=== PATIENT | male | born 1930 | race Caucasian/White ===

== ENCOUNTER 2017-02-20 15:11 | Inpatient (IN) | payer MEDICARE, BC ==
[~2017-02-20] VITALS: Ht 170.2 cm; Wt 68.0 kg
[2017-02-20 15:16] VITALS: BP 89/40
--- NOTE | 2017-02-20 15:26 | Emergency Room Report ---
History of Present Illness General Chief Complaint: Generalized Weakness Source: Patient, Family Member, EMS Present Illness HPI 86-year-old male, history of pacemaker for bradycardia, hypertension, multiple bouts of pneumonia in the last 2 years, presenting with 5 days of fever chills, nonproductive cough, myalgias. Patient is coming from home, currently denying any chest pain abdominal pain nausea vomiting or diarrhea. Last hospital was several months ago. EMS stated that he was hypoxic on room air, 86, 100% with nonrebreather, and borderline hypotensive Allergies: Coded Allergies: No Known Allergies (Unverified , 02/20/17) Patient History Past Medical History: see triage record Past Surgical History: none Pertinent Family History: none Reviewed Nursing Documentation: PMH: Agreed, PSxH: Agreed Nursing Documentation-PMH Past Medical History: No History, Except For Hx Hypertension: Yes Hx COPD: Yes Review of Systems All Other Systems: negative except mentioned in HPI Physical Exam Vital Signs Date Time Temp Pulse Resp B/P (MAP) Pulse Ox O2 Delivery O2 Flow Rate FiO2 02/20/17 15:06 98.4 96 18 100/62 97 Non-Rebreather 10.0 Sp02 EP Interpretation: reviewed, normal General Appearance: alert, GCS 15, non-toxic, mild distress Head: normocephalic, atraumatic Eyes: bilateral eye normal inspection, bilateral eye PERRL, bilateral eye EOMI ENT: normal ENT inspection, normal pharynx, normal voice, moist mucus membranes Neck: normal inspection, full range of motion, supple Respiratory: respiratory distress, speaking full sentences, other - rhonchi b/l Cardiovascular #1: normal inspection, regular rate, rhythm, normal capillary refill Cardiovascular #2: 2+ radial (R), 2+ radial (L) Gastrointestinal: normal inspection, non tender, soft, non-distended, no guarding Musculoskeletal: normal inspection, back normal, normal range of motion, non- tender Neurologic: normal inspection, alert, oriented x3, responsive, motor strength/ tone normal, sensory intact, speech normal Psychiatric: normal inspection, judgement/insight normal, memory normal Skin: normal inspection, normal color, no rash, warm/dry, well hydrated, normal turgor Procedures Critical Care Time Critical Care Time 40 minutes of CC time 86-year-old male, shortness of breath, left-sided pneumonia VS: Tachycardic, hypotensive, tachypnea, hypoxic PLAN: IV access, labs, lactate, troponin, Blood/Urine Cx, Abx, IVF Anticipate admission to Tele vs. BEATRIZ CC time also includes review of labs, review of EMR, discussion with family and paperwork from SNF, d/w hospitalist CC could include dosing of pressors, additional Abx CC time does not include procedures Medical Decision Making Diagnostic Impression: Primary Impression: Pneumonia Additional Impressions: Respiratory distress Hypoxia Severe sepsis ER Course 86-year-old male, fever chills and cough for 5 days DDX: Viral URI vs. pneumonia Plan: Labs, CXR, antibiotics ER course: Continues to be in mild/moderate respiratory distress. IV fluids given to patient, antibiotics administered, L sided pneumonia I spoke to the patient's primary care doctor, , he is aware that patient will be admitted to [facility]. Is requesting to be admitted to Dr. Hazel. Also stated that patient has a history of atrial fibrillation, however is not on anticoagulation due to having a Watchman device Patient with low BP - responded well to fluids now with MAP > 60 Sepsis Re-examination Time: 6:30 PM VS: Temp 98 HR 72 BP 100/65 RR 18 CVS: RRR Respiratory: L lung crackles Peripheral pulses: 2+ radial Capillary refill: <2 seconds Skin exam: warm, dry, no rash, not mottled Disposition: Patient is to be admitted to telemetry D/w hospitalist Dr Hazel EKG Diagnostic Results EP Interpretation: Yes Rate: normal Rhythm: atrial fib ST Segments: RBBB, TWI V3 ASA given to patient: No Rhythm Strip EP Interpretation: Yes Rate: 110 Rhythm: NSR, no PVCs, no ectopy Chest X-ray CXR: Ordered: Yes 1 view Indication: SOB EP interpretation: Yes Interpretation: +L Infiltrate Impression: L sided pneumonia Electronically signed by Graciela Rosales MD Laboratory Tests Test 02/20/17 15:15 02/20/17 16:25 White Blood Count 11.6 K/UL (4.8-10.8) H Red Blood Count 3.95 M/UL (4.70-6.10) L Hemoglobin 12.7 G/DL (14.2-18.0) L Hematocrit 39.1 % (42.0-52.0) L Mean Corpuscular Volume 99 FL (80-99) Mean Corpuscular Hemoglobin 32.1 PG (27.0-31.0) H Mean Corpuscular Hemoglobin Concent 32.4 G/DL (32.0-36.0) Red Cell Distribution Width 11.5 % (11.6-14.8) L Platelet Count 185 K/UL (150-450) Mean Platelet Volume 7.6 FL (6.5-10.1) Neutrophils (%) (Auto) 93.7 % (45.0-75.0) H Lymphocytes (%) (Auto) 2.6 % (20.0-45.0) L Monocytes (%) (Auto) 3.4 % (1.0-10.0) Eosinophils (%) (Auto) 0.0 % (0.0-3.0) Basophils (%) (Auto) 0.3 % (0.0-2.0) Sodium Level 131 MMOL/L (136-145) L Potassium Level 4.0 MMOL/L (3.5-5.1) Chloride Level 98 MMOL/L (98-107) Carbon Dioxide Level 23 MMOL/L (21-32) Anion Gap 10 mmol/L (5-15) Blood Urea Nitrogen 66 mg/dL (7-18) H Creatinine 2.5 MG/DL (0.55-1.30) H Estimate Glomerular Filtration Rate mL/min (>60) Glucose Level 93 MG/DL (74-106) Lactic Acid Level 2.70 mmol/L (0.66-2.22) H Calcium Level 7.8 MG/DL (8.5-10.1) L Total Bilirubin 0.6 MG/DL (0.2-1.0) Aspartate Amino Transferase (AST) 14 U/L (15-37) L Alanine Aminotransferase (ALT) 7 U/L (12-78) L Alkaline Phosphatase 66 U/L (46-116) Total Creatine Kinase 36 U/L (26-308) Troponin I 0.000 ng/mL (0.000-0.056) Pro-B-Type Natriuretic Peptide 1546 pg/mL (0-125) H Total Protein 7.3 G/DL (6.4-8.2) Albumin 2.0 G/DL (3.4-5.0) L Globulin 5.3 g/dL Albumin/Globulin Ratio 0.4 (1.0-2.7) L Urine Color Pale yellow Urine Appearance Slightly cloudy Urine pH 5 (4.5-8.0) Urine Specific Bryant 1.015 (1.005-1.035) Urine Protein 2+ (NEGATIVE) H Urine Glucose (UA) Negative (NEGATIVE) Urine Ketones Negative (NEGATIVE) Urine Occult Blood 2+ (NEGATIVE) H Urine Nitrite Negative (NEGATIVE) Urine Bilirubin Negative (NEGATIVE) Urine Urobilinogen Normal MG/DL (0.0-1.0) Urine Leukocyte Esterase Negative (NEGATIVE) Urine RBC 0-2 /HPF (0 - 0) H Urine WBC 0-2 /HPF (0 - 0) Urine Squamous Epithelial Cells Occasional /LPF Urine Amorphous Sediment Few /LPF (NONE) H Urine Bacteria Few /HPF (NONE) Microbiology Date/Time Source Procedure Growth Status 02/20/17 15:15 Nasal Nares Influenza Types A,B Antigen (GIANFRANCO) - Final Complete Last Vital Signs Date Time Temp Pulse Resp B/P (MAP) Pulse Ox O2 Delivery O2 Flow Rate FiO2 02/20/17 15:06 98.4 96 18 100/62 97 Non-Rebreather 10.0 Disposition: ADMITTED INPATIENT Condition: Critical Graciela Rosales M.D. Feb 20, 2017 15:26
[2017-02-20] MEDS ORDERED: cefTRIAXone 1 GM in NS 55 ML IV ONE (16:00)
[2017-02-20] MEDS ORDERED: Azithromycin 500 MG in NS 275 ML IV ONE (16:00)
[2017-02-20 16:12] LABS: HEMATOCRIT 39.1 % (42.0-52.0); HEMOGLOBIN 12.7 G/DL (14.2-18.0); MEAN CORPUSCULAR VOLUME 99 FL (80-99); PLATELET COUNT 185 K/UL (150-450); RED BLOOD COUNT 3.95 M/UL (4.70-6.10); RED CELL DISTRIBUTION WIDTH 11.5 % (11.6-14.8); WHITE BLOOD COUNT 11.6 K/UL (4.8-10.8)
[2017-02-20 16:15] LABS: BASOPHILS % (AUTO) 0.3 % (0.0-2.0); LYMPHOCYTES % (AUTO) 2.6 % (20.0-45.0); MONOCYTES % (AUTO) 3.4 % (1.0-10.0); NEUTROPHILS % (AUTO) 93.7 % (45.0-75.0)
[2017-02-20 16:22] LABS: ANION GAP 10 mmol/L (5-15); BLOOD UREA NITROGEN 66 mg/dL (7-18); CALCIUM 7.8 MG/DL (8.5-10.1); CARBON DIOXIDE 23 MMOL/L (21-32); CHLORIDE 98 MMOL/L (98-107); CREATININE 2.5 MG/DL (0.55-1.30); SODIUM 131 MMOL/L (136-145)
[2017-02-20 16:31] LABS: ALANINE AMINOTRANSFERASE 7 U/L (12-78); ALBUMIN/GLOBULIN RATIO 0.4 (1.0-2.7); ALKALINE PHOSPHATASE 66 U/L (46-116); ASPARTATE AMINO TRANSFERASE 14 U/L (15-37); BILIRUBIN,TOTAL 0.6 MG/DL (0.2-1.0); CREATINE KINASE 36 U/L (26-308)
[2017-02-20] MEDS ORDERED: Azithromycin 500mg Inj IV ONE (16:51)
[2017-02-20] MEDS ORDERED: NS 275 ML ONE (16:52)
[2017-02-20 16:54] LABS: BILIRUBIN, URINE NEGATIVE (NEGATIVE); COLOR,URINE PALE YELLOW; GLUCOSE, URINE (UA) NEGATIVE (NEGATIVE); KETONES,URINE NEGATIVE (NEGATIVE); LEUKOCYTE ESTERASE ,URINE NEGATIVE (NEGATIVE); NITRITE,URINE NEGATIVE (NEGATIVE); PH,URINE 5 (4.5-8.0); PROTEIN,URINE 2+ (NEGATIVE); UROBILINOGEN,URINE NORMAL MG/DL (0.0-1.0)
[2017-02-20 16:55] LABS: APPEARANCE,URINE SLIGHTLY CLOUDY
--- NOTE | 2017-02-20 17:04 | Diagnostic Imaging Report ---
Indication: Shortness of breath Technique: One view of the chest Comparison: none Findings: There is diffuse interstitial and airspace disease throughout the left lung. There are some calcific granulomata in the periphery of the right upper lobe. The right lung and pleural space are clear otherwise. The heart is borderline enlarged. There is a left chest bifocal pacemaker Impression: Diffuse left lung interstitial and alveolar infiltrates versus edema Evidence of old granulomatous disease Borderline cardiomegaly Pacemaker
[2017-02-20 17:10] VITALS: BP 82/42
[2017-02-20] MEDS ORDERED: Lidocaine 1% Plain 30 ml INJ ONE ×2 (19:27→20:45)
[2017-02-20] MEDS ORDERED: DEXILANT60 MG ORAL (19:27)
[2017-02-20] MEDS ORDERED: LOSARTAN POTASS50 MG ORAL (19:27)
[2017-02-20] MEDS ORDERED: MIDODRINE HCL2.5 MG ORAL (19:27)
[2017-02-20] MEDS ORDERED: ASPIRIN81 MG ORAL (19:27)
[2017-02-20] MEDS ORDERED: PROSCAR5 MG ORAL (19:27)
[2017-02-20 19:39] VITALS: BP 103/47
[2017-02-20] MEDS ORDERED: Levophed 4mg/4mL Inj IV ONE (19:54)
--- NOTE | 2017-02-20 20:01 | Emergency Room Report ---
History of Present Illness General Chief Complaint: Generalized Weakness Source: Patient, Family Member, EMS Present Illness Allergies: Coded Allergies: No Known Allergies (Unverified , 02/20/17) Nursing Documentation-[facility] Past Medical History: No History, Except For Hx Hypertension: Yes Hx COPD: Yes Physical Exam Vital Signs Date Time Temp Pulse Resp B/P (MAP) Pulse Ox O2 Delivery O2 Flow Rate FiO2 02/20/17 15:06 98.4 96 18 100/62 97 Non-Rebreather 10.0 Procedures Critical Care Time Critical Care Time 40 minutes of CC time 86-year-old female, pneumonia, hypotensive VS: Tachycardic, tachypnea, hypoxic PLAN: IV access, labs, lactate, troponin, Blood/Urine Cx, Abx, IVF Anticipate admission to Tele vs. [facility] CC time also includes review of labs, review of EMR, discussion with family and paperwork from SNF, d/w hospitalist CC could include dosing of pressors, additional Abx CC time does not include procedures Central Line Central Line : Consent: Written Central Line Lumen: triple Maximal Sterile Barrier Tech: yes cap, yes mask, yes sterile gown, yes sterile gloves, yes large sterile sheet, yes hand hygiene, yes chlorhexidine prep No Max Barrier Tech Because: emergency insertion Central Line Postion: internal jugular (R) Anesthesia: Lidocaine cc's of anesthesia: 5 Complications: none Central Line Post Position: good blood return, position confirmed w/ CXR Attempts: One Patient Tolerated: Well Complications: None Medical Decision Making Diagnostic Impression: Primary Impression: Pneumonia Additional Impressions: Respiratory distress Severe sepsis Hypoxia Last Vital Signs Date Time Temp Pulse Resp B/P (MAP) Pulse Ox O2 Delivery O2 Flow Rate FiO2 02/20/17 19:39 98.8 79 12 103/47 100 Non-Rebreather 15.0 Disposition: ADMITTED INPATIENT Condition: Critical Referrals: NON PHYSICIAN (PCP) Graciela Rosales M.D. Feb 20, 2017 20:01
[2017-02-20 20:27] VITALS: BP 94/41
[2017-02-20 22:37] VITALS: BP 121/48
[2017-02-20 23:55] VITALS: BP 114/48
[2017-02-21] VITALS (26 sets, daily range): BP systolic 97–165; BP diastolic 41–71
[2017-02-21 04:17] LABS: HEMATOCRIT 31.8 % (42.0-52.0); HEMOGLOBIN 10.7 G/DL (14.2-18.0); MEAN CORPUSCULAR VOLUME 99 FL (80-99); PLATELET COUNT 177 K/UL (150-450); RED BLOOD COUNT 3.23 M/UL (4.70-6.10); RED CELL DISTRIBUTION WIDTH 11.9 % (11.6-14.8); WHITE BLOOD COUNT 11.7 K/UL (4.8-10.8)
--- NOTE | 2017-02-21 04:30 | History and Physical Report ---
DATE OF ADMISSION: 02/20/2017 CONSULTING PHYSICIAN: Sriram Collins M.D. REQUESTING PHYSICIAN: Madan Hazel M.D. REASON FOR EVALUATION: Shock. HISTORY OF PRESENT ILLNESS: This is an 86-year-old male, who presented to the emergency room with several days of fever, chills, and a nonproductive cough with aches and pains, myalgias, and respiratory distress. In the emergency room, he was noted to have significant respiratory distress and a marginal blood pressure. He was pancultured and central venous access was obtained. I have been asked to assist with hemodynamic monitoring and cardiovascular care. PAST MEDICAL HISTORY: Permanent pacemaker, atherosclerotic heart disease, hypertension, prostatic hypertrophy, recurring pneumonia, COPD, paroxysmal atrial fibrillation, history of Watchman device. MEDICATIONS: Reviewed and reconciled. ALLERGIES: None. FAMILY HISTORY: Noncontributory. SOCIAL HISTORY: No current smoking, alcohol, or substance abuse. REVIEW OF SYSTEMS: Unobtainable at this time. However, available data reviewed from records as outlined above. PHYSICAL EXAMINATION: GENERAL: The patient is on a non-rebreather mask. He is in moderate respiratory distress. VITAL SIGNS: Blood pressure 100/65, heart rate 72, respiratory rate 18, afebrile. LUNGS: Accessary muscle use. Dry mucous membranes. Coarse breath sounds. Scattered rhonchi. HEART: Regular rhythm and rate. Normal S1, S2. ABDOMEN: Soft. EXTREMITIES: Trace edema. DIAGNOSTIC DATA: EKG, atrial fibrillation, right bundle-branch block, nonspecific ST-T wave changes. Chest x-ray with left-sided pneumonia and bifocal pacemaker. White count 11.6, hemoglobin 12.7. BUN 66, creatinine 2.5, sodium 131, potassium 4, bicarbonate 23. Lactic acid 2.7. IMPRESSION: 1. Sepsis, shock. 2. Community-acquired pneumonia. 3. Paroxysmal atrial fibrillation with permanent pacemaker. 4. Acute on chronic diastolic congestive heart failure. 5. Lactic acidosis. 6. Acute renal failure. 7. Critical and guarded. PLAN: ICU monitoring. Respiratory hygiene. Bronchodilators. Panculture. Broad-spectrum antibiotics. DVT prophylaxis. Saline hydration. Monitor volume status and cardiorenal parameters. Pressors as needed. Taper off as able. Serial lactic acid levels. Sriram Collins M.D. DR: Enedina JOB#: [id number]
[2017-02-21 04:35] LABS: ANION GAP 7 mmol/L (5-15); BLOOD UREA NITROGEN 53 mg/dL (7-18); CALCIUM 6.9 MG/DL (8.5-10.1); CARBON DIOXIDE 24 MMOL/L (21-32); CHLORIDE 104 MMOL/L (98-107); CREATININE 1.9 MG/DL (0.55-1.30); POTASSIUM 3.3 MMOL/L (3.5-5.1); SODIUM 135 MMOL/L (136-145)
[2017-02-21 04:39] LABS: ALANINE AMINOTRANSFERASE 8 U/L (12-78); ALBUMIN 1.5 G/DL (3.4-5.0); ALBUMIN/GLOBULIN RATIO 0.3 (1.0-2.7); ALKALINE PHOSPHATASE 63 U/L (46-116); ASPARTATE AMINO TRANSFERASE 12 U/L (15-37); BILIRUBIN,TOTAL 0.3 MG/DL (0.2-1.0)
[2017-02-21] MEDS: Albuterol/Ipratropium 3ml neb HHN SCH ×6 (04:40→23:27)
[2017-02-21] MEDS ORDERED: Cefepime HCl 2 GM in D5W 55 ML IV SCH (09:00)
--- NOTE | 2017-02-21 09:08 | Diagnostic Imaging Report ---
Indication: Post line placement Technique: One view of the chest Comparison: 4 hours earlier Findings: Interim placement of a right jugular central venous catheter, tip which projects at the level of the superior vena cava. No gross pneumothorax. There is increasing consolidation of the left mid and lower lung. There is likely pleural fluid on the left. Left chest pacemaker again demonstrated. The heart is borderline enlarged Impression: Status post uncomplicated placement of right jugular central venous catheter, in good position Increasing left lung consolidation. Left pleural effusion again noted
[2017-02-21] MEDS: Aspirin Baby 81mg ORAL SCH (09:45)
[2017-02-21 09:48] LABS: HEMATOCRIT 30.4 % (42.0-52.0); HEMOGLOBIN 10.1 G/DL (14.2-18.0); MEAN CORPUSCULAR VOLUME 99 FL (80-99); PLATELET COUNT 189 K/UL (150-450); RED BLOOD COUNT 3.07 M/UL (4.70-6.10); RED CELL DISTRIBUTION WIDTH 11.9 % (11.6-14.8); WHITE BLOOD COUNT 12.9 K/UL (4.8-10.8)
[2017-02-21] MEDS: Heparin 5000 units/ml inj SUBQ SCH ×2 (09:50→21:41)
[2017-02-21] MEDS: cefTRIAXone 1gm/NS 55ml IVPB SCH ×2 (09:52)
[2017-02-21 10:03] LABS: ANION GAP 8 mmol/L (5-15); BLOOD UREA NITROGEN 49 mg/dL (7-18); CALCIUM 7.1 MG/DL (8.5-10.1); CARBON DIOXIDE 23 MMOL/L (21-32); CHLORIDE 105 MMOL/L (98-107); CREATININE 1.7 MG/DL (0.55-1.30); POTASSIUM 3.1 MMOL/L (3.5-5.1); SODIUM 136 MMOL/L (136-145)
--- NOTE | 2017-02-21 12:26 | Diagnostic Imaging Report ---
Indication: Reason For Exam: SOB Technique: One view of the chest Comparison: 02/20/2017 Findings: Diffuse airspace disease throughout most of the left lung persists. Probable left pleural effusion persists. Right lung and pleural space remain grossly clear. Pacemaker, right jugular central venous catheter remain Impression: Unchanged, over one day, findings as above.
[2017-02-21] MEDS ORDERED: Potassium Chloride 20 MEQ/ NS 275 ML IVPB ONE ×6 (13:00→23:00)
--- NOTE | 2017-02-21 15:29 | Progress Note ---
DATE: 02/21/2017 CARDIOLOGY PROGRESS NOTE SUBJECTIVE: The patient remains in the ER, awaiting intensive care unit bed. He remains congested with shortness of breath. His blood pressure parameters have improved, but remained marginal. He has avoided pressors. OBJECTIVE: LUNGS: Coarse breath sounds. Scattered rhonchi, left greater than right. HEART: Regular rhythm and rate. Normal S1, S2. ABDOMEN: Soft. EXTREMITIES: Trace edema. LABORATORY DATA: Notable for white count 12.6 and potassium 3.1. IMPRESSION: 1. Community-acquired pneumonia. 2. Hypoxia. 3. Acute respiratory insufficiency. 4. Sepsis with shock, recovering. 5. Hypokalemia. 6. Acute on chronic diastolic congestive heart failure. 7. Resolved lactic acidosis. 8. Acute renal failure, improving. 9. Paroxysmal atrial fibrillation with permanent pacemaker. PLAN: 1. Continue with current medication regimen. 2. Taper down intravenous fluids. 3. Replace potassium. 4. Remains high risk. Sriram Collins M.D. DR: BRICE JOB#: [id number] CC: ALEIDA
--- NOTE | 2017-02-21 16:29 | Consultation ---
DATE OF CONSULTATION: 02/21/2017 INFECTIOUS DISEASES CONSULTATION CONSULTING PHYSICIAN: Char Dutton M.D. ATTENDING/REFERRING PHYSICIAN: Madan Hazel M.D. REASON FOR CONSULTATION: Pneumonia. HISTORY OF PRESENTING ILLNESS: This is an 86-year-old gentleman with history of hypertension, COPD, atrial fibrillation, status post pacemaker placement, who came in with fever, chills, cough, and shortness of breath. An infectious diseases consultation has been obtained for pneumonia. PAST MEDICAL HISTORY: 1. History of atherosclerotic heart disease. 2. Hypertension. 3. Prostatic hypertrophy. 4. Pneumonia. 5. COPD. 6. Atrial fibrillation, status post pacemaker placement. SOCIAL HISTORY: He does not smoke, drink, or use drugs. FAMILY HISTORY: Positive for heart disease in his father, breast cancer in his mother. REVIEW OF SYSTEMS: RESPIRATORY: He had fever and chills. He has cough. He has shortness of breath. No chest pain. CARDIAC: No chest pain. No palpitations. No dizziness. No syncope. GASTROINTESTINAL: No nausea. No vomiting. No abdominal pain or diarrhea. MEDICATIONS: As an inpatient, he is on potassium, azithromycin, subcutaneous heparin, aspirin, Proscar, midodrine, ceftriaxone, albuterol, ipratropium, norepinephrine. ALLERGIES: No known drug allergies. PHYSICAL EXAMINATION: VITAL SIGNS: Temperature of 97.9, T-max of 98.3, pulse of 69, respiratory rate 24, blood pressure 143/63, O2 saturation of 97%. HEENT: Pupils equally reactive to light and accommodation. Mouth appears clean without thrush. NECK: Supple. No adenopathy. No JVD. CARDIOVASCULAR: Regular rate and rhythm. No murmurs. LUNGS: Clear to auscultation bilaterally. No crackles. No wheezes. ABDOMEN: Soft, nontender. No organomegaly. EXTREMITIES: No cyanosis, no clubbing, no edema. LABORATORY DATA: White count 12.9, hemoglobin 10.1, hematocrit 30.4, MCV 99, platelet count of 189,000 with neutrophils of 90%. Sodium 136, potassium 3.1, chloride 105, bicarbonate 23, BUN 49, creatinine 1.7, glucose 99, calcium 7.1. Total bilirubin 0.3, AST 12, ALT 8, alkaline phosphatase 63, total protein 6, albumin 1.5. UA showing 0-2 white cells. Nasal swab was negative for influenza A and B. Chest x-ray is showing diffuse airspace disease throughout most of the left lung, left-sided pleural effusion noted. ASSESSMENT: 1. This is an 86-year-old gentleman with history of hypertension and atrial fibrillation, who comes in with left-sided pneumonia. 2. Chronic obstructive pulmonary disease. 3. Atrial fibrillation. PLAN: 1. Continue ceftriaxone and azithromycin. 2. We will order sputum for Gram stain and culture. 3. We will order for serum Legionella antibody. 4. We will order for Mycoplasma serology. 5. We will follow up cultures and adjust antibiotics accordingly. I would like to thank Dr. Hazel for this consultation. Char Dutton M.D. DR: Madison JOB#: [id number] CC: Madan Hazel M.D.
[2017-02-21] MEDS ORDERED: Azithromycin 500 MG in NS 275 ML IV SCH ×2 (18:00→20:00)
--- NOTE | 2017-02-21 18:30 | Consultation ---
DATE OF CONSULTATION: 02/22/2016 PULMONARY CONSULTATION CONSULTING PHYSICIAN: Madan Hazel M.D. REASON FOR ADMISSION: Pneumonia. HISTORY OF PRESENT ILLNESS: This 86-year-old male presented to emergency room with fevers, chills, and sputum production, also with diffuse muscle aches. The patient was seen and evaluated in the emergency room, also noted to be somewhat hypotensive. The patient's care discussed and reviewed. The patient denies any prior history of significant lung disease, although there is a questionable history of COPD. The patient is presently comfortable without significant distress, resting, on oxygen. He denies any oxygen use. He is ambulatory overall. The patient's care discussed and reviewed with the patient in detail. The patient denies any ill contacts. Denies any recent travel. The patient's medications were reviewed. There is no clear prior history of inhaler use. The patient has had no falls or trauma. The patient is up-to-date on vaccinations. PAST MEDICAL HISTORY: Notable for permanent pacemaker, atherosclerotic heart disease, benign prostatic hyperplasia, hypertension, history of apparently throat cancer, history of paroxysmal atrial fibrillation, and history of Watchman device. MEDICATIONS: Reviewed and reconciled. ALLERGIES: Reviewed. SOCIAL HISTORY: Nonsmoker and nondrinker. REVIEW OF SYSTEMS: Otherwise negative with the exception of the above. PHYSICAL EXAMINATION: GENERAL: A well-developed male, overall much improved from last night. VITAL SIGNS: The patient is currently on oxygen low flow, saturations 96% on 2 liters, temperature is 98, heart rate 72, blood pressure 136/44, and respiratory rate is 22. HEENT: Fairly negative. Extraocular movements are grossly intact. Oropharynx is moist. NECK: Supple. No adenopathy. LUNGS: Notable for some reduced breath sounds. Left lung with minimal expiratory rhonchi. CARDIAC: Normal S1, S2. Regular rate and rhythm without murmurs, rubs, or gallops. ABDOMEN: Overall soft, nontender, and nondistended. EXTREMITIES: No cyanosis, clubbing, or edema. NEUROLOGIC: Grossly nonfocal. LABORATORY DATA: Reviewed. Sodium 135, potassium 3.3, BUN 53, and creatinine 1.9. Albumin is only 1.5. The white count 11.7, hemoglobin 10.7, and platelets are 127. IMPRESSION: 1. Diffuse left lung infiltrate. 2. Hypoxemia. 3. Evidence of renal insufficiency, possibly acute on chronic. 4. Possible sepsis with transient hypotension. 5. Paroxysmal atrial fibrillation. 6. Lactic acidosis. 7. Right bundle-branch block. RECOMMENDATIONS: Cardiology and ID evaluation. Monitor in ICU, although hypotension appears to have stabilized. Bronchodilators. Panculture. IV antibiotics for community-acquired pneumonia. The patient has not apparently been hospitalized recently. Pressors as needed, although appears to be better. Monitor renal function. Monitor labs. Obtain cultures and hope to see improvement in imaging and clinical exam and discharge the patient home soon. Madan Hazel M.D. DR: MAREN JOB#: [id number] CC:
[2017-02-22] VITALS: BP 128/69
[2017-02-22] MEDS: Albuterol/Ipratropium 3ml neb HHN SCH ×6 (03:00→23:30)
[2017-02-22 04:00] VITALS: BP 132/74
[2017-02-22 08:00] VITALS: BP 148/60
[2017-02-22] MEDS: Aspirin Baby 81mg ORAL SCH (09:50)
[2017-02-22] MEDS: Heparin 5000 units/ml inj SUBQ SCH ×2 (09:51→20:10)
--- NOTE | 2017-02-22 09:56 | General Progress Note ---
Assessment/Plan Assessment/Plan IMPRESSION: 1. Diffuse left lung infiltrate. 2. Hypoxemia. 3. Evidence of renal insufficiency, possibly acute on chronic. 4. Possible sepsis with transient hypotension. 5. Paroxysmal atrial fibrillation. 6. Lactic acidosis. 7. Right bundle-branch block. PLAN no change care as is respiratory care monitor imaging check titers ID follow up and clearance out of bed hydration impression, plan, and exam edited and reviewed in detail care discussed with RN Subjective Allergies: Coded Allergies: No Known Allergies (Unverified , 02/20/17) Subjective care noted improving patient elected [facility] Objective Last 24 Hour Vital Signs Date Time Temp Pulse Resp B/P (MAP) Pulse Ox O2 Delivery O2 Flow Rate FiO2 02/22/17 08:54 83 02/22/17 08:12 67 16 92 Room Air 02/22/17 08:12 Room Air 02/22/17 08:00 98.1 68 19 148/60 91 Room Air 02/22/17 04:00 98.2 61 20 132/74 94 Nasal Cannula 2.0 02/22/17 04:00 61 02/22/17 03:21 Nasal Cannula 2.0 28 02/22/17 03:20 Nasal Cannula 2.0 28 02/22/17 00:00 98.1 82 20 128/69 94 Nasal Cannula 2.0 02/22/17 00:00 69 02/21/17 23:34 65 20 98 Nasal Cannula 2.0 28 02/21/17 23:29 28 02/21/17 23:27 73 20 96 Nasal Cannula 2.0 28 02/21/17 20:00 69 02/21/17 20:00 98.3 77 24 145/71 95 Nasal Cannula 2.0 02/21/17 19:19 77 20 100 Nasal Cannula 2.0 28 02/21/17 19:15 28 02/21/17 19:12 75 20 97 Nasal Cannula 2.0 28 02/21/17 16:30 69 02/21/17 16:13 Nasal Cannula 2.0 28 02/21/17 16:12 Nasal Cannula 28 02/21/17 16:00 98.1 55 20 148/71 95 Nasal Cannula 2.0 02/21/17 14:48 98.2 67 22 146/70 95 Nasal Cannula 2.0 28 02/21/17 14:00 99.1 67 22 132/52 97 Nasal Cannula 2.0 02/21/17 14:00 97.9 67 22 132/52 97 Nasal Cannula 2.0 02/21/17 13:30 66 23 126/56 97 Nasal Cannula 2.0 02/21/17 13:00 69 24 143/63 97 Nasal Cannula 2.0 02/21/17 12:30 97.9 67 18 112/49 97 Nasal Cannula 2.0 02/21/17 12:00 70 22 114/43 96 Nasal Cannula 2.0 02/21/17 11:30 97.5 71 23 106/51 98 Nasal Cannula 2.0 02/21/17 11:15 61 22 100 Nasal Cannula 2.0 28 02/21/17 11:13 28 02/21/17 11:10 61 23 98 Nasal Cannula 2.0 28 02/21/17 11:00 63 21 100/43 98 Nasal Cannula 2.0 02/21/17 10:30 63 20 100/41 98 Nasal Cannula 2.0 02/21/17 10:00 69 22 129/50 98 Nasal Cannula 2.0 Intake and Output 02/21/17 02/22/17 19:00 07:00 Intake Total 1355 ml 1225 ml Output Total 150 ml Balance 1355 ml 1075 ml Intake Oral 400 ml IV Total 1355 ml 825 ml Output Urine Total 150 ml # Bowel Movements 3 Height (Feet): 5 Height (Inches): 7.00 Weight (Pounds): 150 Objective GENERAL: A well-developed male, NAD HEENT: Fairly negative. Extraocular movements are grossly intact. Oropharynx is moist. NECK: Supple. No adenopathy. LUNGS: Notable for some reduced breath sounds. Left lung with some expiratory rhonchi. CARDIAC: Normal S1, S2. Regular rate and rhythm without murmurs, rubs, or gallops. ABDOMEN: Overall soft, nontender, and nondistended. EXTREMITIES: No cyanosis, clubbing, or edema. NEUROLOGIC: Grossly nonfocal. SALO SHERMAN Feb 22, 2017 09:56
[2017-02-22] MEDS: cefTRIAXone 1gm/NS 55ml IVPB SCH ×4 (10:51→16:02)
[2017-02-22 11:04] LABS: ANION GAP 10 mmol/L (5-15); BLOOD UREA NITROGEN 35 mg/dL (7-18); CALCIUM 7.3 MG/DL (8.5-10.1); CARBON DIOXIDE 21 MMOL/L (21-32); CHLORIDE 109 MMOL/L (98-107); CREATININE 1.5 MG/DL (0.55-1.30); POTASSIUM 3.5 MMOL/L (3.5-5.1); SODIUM 140 MMOL/L (136-145)
[2017-02-22 11:05] LABS: HEMATOCRIT 34.4 % (42.0-52.0); MEAN CORPUSCULAR VOLUME 100 FL (80-99); PLATELET COUNT 208 K/UL (150-450); RED BLOOD COUNT 3.43 M/UL (4.70-6.10); WHITE BLOOD COUNT 10.9 K/UL (4.8-10.8)
[2017-02-22 11:13] LABS: ALANINE AMINOTRANSFERASE 13 U/L (12-78); ALBUMIN 1.6 G/DL (3.4-5.0); ALBUMIN/GLOBULIN RATIO 0.3 (1.0-2.7); ALKALINE PHOSPHATASE 77 U/L (46-116); ASPARTATE AMINO TRANSFERASE 15 U/L (15-37); BILIRUBIN,TOTAL 0.3 MG/DL (0.2-1.0)
[2017-02-22 12:00] VITALS: BP 151/73
[2017-02-22 16:00] VITALS: BP 155/98
[2017-02-22 20:00] VITALS: BP 154/82
[2017-02-22] MEDS: Dyna-Hex 2% Top Sol 2oz TOPIC SCH (20:09)
[2017-02-22] MEDS: Azithromycin 500 MG in NS 275 ML IV SCH (20:09)
[2017-02-23] VITALS: BP 144/60
[2017-02-23] MEDS: Albuterol/Ipratropium 3ml neb HHN SCH ×3 (02:12→10:47)
--- NOTE | 2017-02-23 03:00 | Progress Note ---
DATE: 02/22/2017 CARDIOLOGY PROGRESS NOTE SUBJECTIVE: The patient has less congestion. No shortness of breath. OBJECTIVE: VITAL SIGNS: Blood pressure 132/74, heart rate 61, respiratory 20. Paced rhythm. LUNGS: Coarse breath sounds. Scattered rhonchi. HEART: Regular rhythm and rate. Normal S1, S2. ABDOMEN: Soft. EXTREMITIES: Trace edema. LABORATORY DATA: White count 10.9, hemoglobin 11. Pro-natriuretic peptide has increased to 4000. Potassium is 3.5, BUN 35, creatinine 1.5. Chest x-ray yesterday revealed diffuse interstitial disease. IMPRESSION: 1. Pneumonia. 2. Permanent pacemaker. 3. Paroxysmal atrial fibrillation. 4. Acute on chronic diastolic congestive heart failure. 5. Hypokalemia. 6. Acute on chronic renal failure, improved. 7. Recovered sepsis with shock and lactic acidosis. PLAN: 1. Discontinue IV fluids. 2. Reassess for diuresis. 3. Antimicrobials continued. 4. Respiratory hygiene continued. 5. We will obtain outpatient records regarding prior pacemaker interrogations. Sriram Collins M.D. DR: MATTHEW JOB#: [id number] CC:
[2017-02-23 04:00] VITALS: BP 139/60
[2017-02-23 08:00] VITALS: BP 177/76
[2017-02-23] MEDS: Aspirin Baby 81mg ORAL SCH (09:11)
[2017-02-23] MEDS: Heparin 5000 units/ml inj SUBQ SCH ×2 (09:11→20:18)
--- NOTE | 2017-02-23 10:35 | General Progress Note ---
Assessment/Plan Assessment/Plan IMPRESSION: 1. Diffuse left lung infiltrate. 2. Hypoxemia. 3. Evidence of renal insufficiency, possibly acute on chronic. 4. Possible sepsis with transient hypotension. 5. Paroxysmal atrial fibrillation. 6. Lactic acidosis. 7. Right bundle-branch block. PLAN await imaging check titers- still pending ID follow up and clearance out of bed and PT hydration discontinued with elevated BNP clonidine prn hope to dc in am impression, plan, and exam edited and reviewed in detail care discussed with RN Subjective Allergies: Coded Allergies: No Known Allergies (Unverified , 02/20/17) Subjective care noted improving and able to ambulate no cough or congestion Objective Last 24 Hour Vital Signs Date Time Temp Pulse Resp B/P (MAP) Pulse Ox O2 Delivery O2 Flow Rate FiO2 02/23/17 09:11 177/59 02/23/17 08:28 68 23 97 Room Air 21 02/23/17 08:28 21 02/23/17 08:22 68 23 96 Room Air 21 02/23/17 08:00 91 02/23/17 08:00 98.2 69 20 177/76 93 Room Air 02/23/17 04:24 68 02/23/17 04:00 98.5 71 18 139/60 94 Room Air 02/23/17 02:13 Room Air 21 02/23/17 02:12 Nasal Cannula 2.0 28 02/23/17 00:00 98.9 70 20 144/60 94 Room Air 02/22/17 23:49 77 02/22/17 23:37 75 20 98 Room Air 21 02/22/17 23:32 21 02/22/17 23:30 70 20 95 Room Air 21 02/22/17 20:00 98.7 73 24 154/82 93 Room Air 02/22/17 19:30 82 02/22/17 18:53 74 20 99 Room Air 21 02/22/17 18:47 21 02/22/17 18:45 71 20 94 Room Air 21 02/22/17 16:00 66 02/22/17 16:00 97.3 71 20 155/98 93 Room Air 02/22/17 15:43 Room Air 02/22/17 15:43 Room Air 02/22/17 12:20 60 02/22/17 12:00 98.1 62 19 151/73 94 Room Air 02/22/17 11:17 Room Air 02/22/17 11:17 Room Air Intake and Output 02/22/17 02/23/17 19:00 07:00 Intake Total 1360 ml 850 ml Balance 1360 ml 850 ml Intake Oral 480 ml 200 ml IV Total 880 ml 650 ml # Voids 2 3 # Bowel Movements 1 2 Labs Test 02/20/17 15:15 02/20/17 16:25 02/20/17 17:35 02/21/17 04:15 White Blood Count 11.6 K/UL (4.8-10.8) 11.7 K/UL (4.8-10.8) Red Blood Count 3.95 M/UL (4.70-6.10) 3.23 M/UL (4.70-6.10) Hemoglobin 12.7 G/DL (14.2-18.0) 10.7 G/DL (14.2-18.0) Hematocrit 39.1 % (42.0-52.0) 31.8 % (42.0-52.0) Mean Corpuscular Volume 99 FL (80-99) 99 FL (80-99) Mean Corpuscular Hemoglobin 32.1 PG (27.0-31.0) 33.0 PG (27.0-31.0) Mean Corpuscular Hemoglobin Concent 32.4 G/DL (32.0-36.0) 33.5 G/DL (32.0-36.0) Red Cell Distribution Width 11.5 % (11.6-14.8) 11.9 % (11.6-14.8) Platelet Count 185 K/UL (150-450) 177 K/UL (150-450) Mean Platelet Volume 7.6 FL (6.5-10.1) 8.9 FL (6.5-10.1) Neutrophils (%) (Auto) 93.7 % (45.0-75.0) % (45.0-75.0) Lymphocytes (%) (Auto) 2.6 % (20.0-45.0) % (20.0-45.0) Monocytes (%) (Auto) 3.4 % (1.0-10.0) % (1.0-10.0) Eosinophils (%) (Auto) 0.0 % (0.0-3.0) % (0.0-3.0) Basophils (%) (Auto) 0.3 % (0.0-2.0) % (0.0-2.0) Sodium Level 131 MMOL/L (136-145) 135 MMOL/L (136-145) Potassium Level 4.0 MMOL/L (3.5-5.1) 3.3 MMOL/L (3.5-5.1) Chloride Level 98 MMOL/L (98-107) 104 MMOL/L (98-107) Carbon Dioxide Level 23 MMOL/L (21-32) 24 MMOL/L (21-32) Anion Gap 10 mmol/L (5-15) 7 mmol/L (5-15) Blood Urea Nitrogen 66 mg/dL (7-18) 53 mg/dL (7-18) Creatinine 2.5 MG/DL (0.55-1.30) 1.9 MG/DL (0.55-1.30) Estimat Glomerular Filtration Rate mL/min (>60) mL/min (>60) Glucose Level 93 MG/DL (74-106) 101 MG/DL (74-106) Lactic Acid Level 2.70 mmol/L (0.66-2.22) 2.00 mmol/L (0.66-2.22) Calcium Level 7.8 MG/DL (8.5-10.1) 6.9 MG/DL (8.5-10.1) Total Bilirubin 0.6 MG/DL (0.2-1.0) 0.3 MG/DL (0.2-1.0) Aspartate Amino Transf (AST/SGOT) 14 U/L (15-37) 12 U/L (15-37) Alanine Aminotransferase (ALT/SGPT) 7 U/L (12-78) 8 U/L (12-78) Alkaline Phosphatase 66 U/L (46-116) 63 U/L (46-116) Total Creatine Kinase 36 U/L (26-308) Troponin I 0.000 ng/mL (0.000-0.056) Pro-B-Type Natriuretic Peptide 1546 pg/mL (0-125) Total Protein 7.3 G/DL (6.4-8.2) 6.0 G/DL (6.4-8.2) Albumin 2.0 G/DL (3.4-5.0) 1.5 G/DL (3.4-5.0) Globulin 5.3 g/dL 4.5 g/dL Albumin/Globulin Ratio 0.4 (1.0-2.7) 0.3 (1.0-2.7) Urine Color Pale yellow Urine Appearance Slightly cloudy Urine pH 5 (4.5-8.0) Urine Specific [place] 1.015 (1.005-1.035) Urine Protein 2+ (NEGATIVE) Urine Glucose (UA) Negative (NEGATIVE) Urine Ketones Negative (NEGATIVE) Urine Occult Blood 2+ (NEGATIVE) Urine Nitrite Negative (NEGATIVE) Urine Bilirubin Negative (NEGATIVE) Urine Urobilinogen Normal MG/DL (0.0-1.0) Urine Leukocyte Esterase Negative (NEGATIVE) Urine RBC 0-2 /HPF (0 - 0) Urine WBC 0-2 /HPF (0 - 0) Urine Squamous Epithelial Cells Occasional /LPF Urine Amorphous Sediment Few /LPF (NONE) Urine Bacteria Few /HPF (NONE) Magnesium Level 2.0 MG/DL (1.8-2.4) Test 02/21/17 05:03 02/21/17 09:26 02/22/17 10:05 Lactic Acid Level 1.90 mmol/L (0.66-2.22) White Blood Count 12.9 K/UL (4.8-10.8) 10.9 K/UL (4.8-10.8) Red Blood Count 3.07 M/UL (4.70-6.10) 3.43 M/UL (4.70-6.10) Hemoglobin 10.1 G/DL (14.2-18.0) 11.0 G/DL (14.2-18.0) Hematocrit 30.4 % (42.0-52.0) 34.4 % (42.0-52.0) Mean Corpuscular Volume 99 FL (80-99) 100 FL (80-99) Mean Corpuscular Hemoglobin 33.0 PG (27.0-31.0) 32.0 PG (27.0-31.0) Mean Corpuscular Hemoglobin Concent 33.3 G/DL (32.0-36.0) 31.9 G/DL (32.0-36.0) Red Cell Distribution Width 11.9 % (11.6-14.8) 12.0 % (11.6-14.8) Platelet Count 189 K/UL (150-450) 208 K/UL (150-450) Mean Platelet Volume 8.9 FL (6.5-10.1) 8.6 FL (6.5-10.1) Neutrophils (%) (Auto) % (45.0-75.0) % (45.0-75.0) Lymphocytes (%) (Auto) % (20.0-45.0) % (20.0-45.0) Monocytes (%) (Auto) % (1.0-10.0) % (1.0-10.0) Eosinophils (%) (Auto) % (0.0-3.0) % (0.0-3.0) Basophils (%) (Auto) % (0.0-2.0) % (0.0-2.0) Differential Total Cells Counted 100 100 Neutrophils % (Manual) 90 % (45-75) 86 % (45-75) Lymphocytes % (Manual) 2 % (20-45) 7 % (20-45) Monocytes % (Manual) 5 % (1-10) 7 % (1-10) Eosinophils % (Manual) 0 % (0-3) 0 % (0-3) Basophils % (Manual) 0 % (0-2) 0 % (0-2) Band Neutrophils 3 % (0-8) 0 % (0-8) Platelet Estimate Adequate Adequate Platelet Morphology Normal Normal Hypochromasia 1+ 1+ Sodium Level 136 MMOL/L (136-145) 140 MMOL/L (136-145) Potassium Level 3.1 MMOL/L (3.5-5.1) 3.5 MMOL/L (3.5-5.1) Chloride Level 105 MMOL/L (98-107) 109 MMOL/L (98-107) Carbon Dioxide Level 23 MMOL/L (21-32) 21 MMOL/L (21-32) Anion Gap 8 mmol/L (5-15) 10 mmol/L (5-15) Blood Urea Nitrogen 49 mg/dL (7-18) 35 mg/dL (7-18) Creatinine 1.7 MG/DL (0.55-1.30) 1.5 MG/DL (0.55-1.30) Estimat Glomerular Filtration Rate mL/min (>60) mL/min (>60) Glucose Level 99 MG/DL (74-106) 111 MG/DL (74-106) Calcium Level 7.1 MG/DL (8.5-10.1) 7.3 MG/DL (8.5-10.1) Magnesium Level 2.1 MG/DL (1.8-2.4) Total Bilirubin 0.3 MG/DL (0.2-1.0) Aspartate Amino Transf (AST/SGOT) 15 U/L (15-37) Alanine Aminotransferase (ALT/SGPT) 13 U/L (12-78) Alkaline Phosphatase 77 U/L (46-116) Pro-B-Type Natriuretic Peptide 4030 pg/mL (0-125) Total Protein 6.5 G/DL (6.4-8.2) Albumin 1.6 G/DL (3.4-5.0) Globulin 4.9 g/dL Albumin/Globulin Ratio 0.3 (1.0-2.7) Height (Feet): 5 Height (Inches): 7.00 Weight (Pounds): 150 Objective GENERAL: A well-developed male, NAD HEENT: Fairly negative. Extraocular movements are grossly intact. Oropharynx is moist. NECK: Supple. No adenopathy. LUNGS: clear without rhonchi or wheeze CARDIAC: Normal S1, S2. Regular rate and rhythm without murmurs, rubs, or gallops. ABDOMEN: Overall soft, nontender, and nondistended. EXTREMITIES: No cyanosis, clubbing, or edema. NEUROLOGIC: Grossly nonfocal. SALO SHERMAN Feb 23, 2017 10:35
--- NOTE | 2017-02-23 11:07 | Infectious Diseases Prog Note ---
Assessment/Plan Assessment/Plan A; CAP COPD HPN Acute renal failure improving P: Continue Rocephin & Zithromax At time of discharge PO Levaquin to complete one week treatment Subjective ROS Limited/Unobtainable: No Constitutional: Reports: no symptoms Respiratory: Reports: productive cough Cardiovascular: Reports: no symptoms Gastrointestinal/Abdominal: Reports: no symptoms Genitourinary: Reports: no symptoms Allergies: Coded Allergies: No Known Allergies (Unverified , 02/20/17) Objective Vital Signs Last 24 Hour Vital Signs Date Time Temp Pulse Resp B/P (MAP) Pulse Ox O2 Delivery O2 Flow Rate FiO2 02/23/17 10:53 60 23 97 Room Air 21 02/23/17 10:53 21 02/23/17 10:47 60 23 97 Room Air 21 02/23/17 09:11 177/59 02/23/17 08:28 68 23 97 Room Air 21 02/23/17 08:28 21 02/23/17 08:22 68 23 96 Room Air 21 02/23/17 08:00 91 02/23/17 08:00 98.2 69 20 177/76 93 Room Air 02/23/17 04:24 68 02/23/17 04:00 98.5 71 18 139/60 94 Room Air 02/23/17 02:13 Room Air 21 02/23/17 02:12 Nasal Cannula 2.0 28 02/23/17 00:00 98.9 70 20 144/60 94 Room Air 02/22/17 23:49 77 02/22/17 23:37 75 20 98 Room Air 21 02/22/17 23:32 21 02/22/17 23:30 70 20 95 Room Air 21 02/22/17 20:00 98.7 73 24 154/82 93 Room Air 02/22/17 19:30 82 02/22/17 18:53 74 20 99 Room Air 21 02/22/17 18:47 21 02/22/17 18:45 71 20 94 Room Air 21 02/22/17 16:00 66 02/22/17 16:00 97.3 71 20 155/98 93 Room Air 02/22/17 15:43 Room Air 02/22/17 15:43 Room Air 02/22/17 12:20 60 02/22/17 12:00 98.1 62 19 151/73 94 Room Air 02/22/17 11:17 Room Air 02/22/17 11:17 Room Air Height (Feet): 5 Height (Inches): 7.00 Weight (Pounds): 150 General Appearance: no acute distress HEENT: mucous membranes moist Respiratory/Chest: lungs clear Cardiovascular: normal rate Abdomen: soft, non tender Extremities: no edema Neurologic/Psychiatric: alert, oriented x 3, responsive Microbiology Date/Time Source Procedure Growth Status 02/20/17 15:30 Blood Blood Culture - Preliminary NO GROWTH AFTER 48 HOURS Resulted 02/20/17 15:15 Blood Blood Culture - Preliminary NO GROWTH AFTER 48 HOURS Resulted 02/21/17 09:15 Sputum Gram Stain - Final Complete 02/21/17 09:15 Sputum Sputum Culture - Final NORMAL UPPER RESPIRATORY AMAN PRESENT Complete 02/21/17 02:15 Nasal Nares MRSA Culture - Final NO METHICILLIN RESISTANT STAPH AUREUS... Complete 02/20/17 15:15 Nasal Nares Influenza Types A,B Antigen (GIANFRANCO) - Final Complete 02/21/17 02:15 Rectum VRE Culture - Final NO VANCOMYCIN RESISTANT ENTEROCOCCUS ... Complete Current Medications Medications (Trade) Dose Ordered Sig/Rola Route PRN Reason Start Time Stop Time Status Last Admin Dose Admin Albuterol/ Ipratropium (Albuterol/ Ipratropium) 3 ml Q4HRT HHN 02/21/17 03:00 02/26/17 02:59 02/23/17 10:47 Aspirin (ASA) 81 mg DAILY ORAL 02/21/17 09:00 03/23/17 08:59 02/23/17 09:11 Azithromycin 500 mg/Sodium Chloride 275 ml @ 275 mls/hr DAILY@1999 IV 02/22/17 20:00 03/01/17 19:59 02/22/17 20:09 Ceftriaxone Sodium 1 gm/ Sodium Chloride 55 ml @ 110 mls/hr Q24H IVPB 02/22/17 11:00 03/01/17 10:59 02/22/17 10:51 Chlorhexidine Gluconate (Reina-Hex 2%) 1 applic DAILY@1999 TOPIC 02/22/17 20:00 03/24/17 19:59 02/22/17 20:09 Clonidine HCl (Catapres) 0.1 mg Q4H PRN ORAL SBP > 150 mmHg 02/23/17 09:00 03/25/17 08:59 02/23/17 09:11 Finasteride (Proscar) 5 mg DAILY ORAL 02/21/17 09:00 03/23/17 08:59 02/23/17 09:11 Heparin Sodium (Porcine) (Heparin 5000 units/ml) 5,000 units EVERY 12 HOURS SUBQ 02/21/17 09:00 03/23/17 08:59 02/23/17 09:11 Midodrine (Pro-Amatine) 2.5 mg BID ORAL 02/21/17 09:00 03/23/17 08:59 02/22/17 09:51 Pantoprazole (Protonix) 40 mg DAILY ORAL 02/21/17 18:00 03/23/17 17:59 02/23/17 09:11 JOHN DANIELSON Feb 23, 2017 11:07
[2017-02-23] MEDS: cefTRIAXone 1gm/NS 55ml IVPB SCH ×2 (11:17)
[2017-02-23 12:00] VITALS: BP 98/48
[2017-02-23] MEDS ORDERED: Levalbuterol Inh UD 1.25mg/0.5ml HHN PRN (15:00)
[2017-02-23 16:00] VITALS: BP_SYST 130; BP_SYST 98; BP_DIAS 48; BP_DIAS 74
[2017-02-23 20:00] VITALS: BP 136/74
[2017-02-23] MEDS: Azithromycin 500 MG in NS 275 ML IV SCH (20:00)
[2017-02-23] MEDS: Dyna-Hex 2% Top Sol 2oz TOPIC SCH (20:17)
[2017-02-24] VITALS: BP 145/80
[2017-02-24 04:00] VITALS: BP 186/95
[2017-02-24 08:00] VITALS: BP 168/92
--- NOTE | 2017-02-24 09:06 | General Progress Note ---
Assessment/Plan Assessment/Plan IMPRESSION: 1. Diffuse left lung infiltrate- not improved on CXR. 2. Hypoxemia. 3. Evidence of renal insufficiency, possibly acute on chronic. 4. Possible sepsis with transient hypotension. 5. Paroxysmal atrial fibrillation. 6. Lactic acidosis. 7. Right bundle-branch block. 8. Hypertension PLAN stat CT chest needed- will order and follow up and discuss ID discussed check titers- still pending ID follow up and clearance out of bed and PT clonidine prn hope to dc but imaging not improved impression, plan, and exam edited and reviewed in detail care discussed with RN Subjective Allergies: Coded Allergies: No Known Allergies (Unverified , 02/20/17) Subjective care noted improving and able to ambulate no cough or congestion CXR not better Objective Last 24 Hour Vital Signs Date Time Temp Pulse Resp B/P (MAP) Pulse Ox O2 Delivery O2 Flow Rate FiO2 02/24/17 05:07 185/96 02/24/17 04:00 98.0 68 20 186/95 96 Nasal Cannula 2.0 02/24/17 04:00 68 02/24/17 00:00 98.1 68 18 145/80 96 Nasal Cannula 2.0 02/24/17 00:00 63 02/23/17 20:00 98.6 62 20 136/74 95 Nasal Cannula 2.0 02/23/17 19:58 63 02/23/17 17:02 65 02/23/17 16:00 98.4 125 20 130/74 95 Nasal Cannula 2.0 02/23/17 15:15 Room Air 21 02/23/17 15:15 Room Air 02/23/17 12:00 98.2 91 19 98/48 90 Room Air 02/23/17 11:46 68 02/23/17 10:53 60 23 97 Room Air 21 02/23/17 10:53 21 02/23/17 10:47 60 23 97 Room Air 21 02/23/17 09:11 177/59 Intake and Output 02/23/17 02/24/17 19:00 07:00 Intake Total 535 ml 515 ml Balance 535 ml 515 ml Intake Oral 480 ml 240 ml IV Total 55 ml 275 ml # Voids 2 1 # Bowel Movements 2 3 Height (Feet): 5 Height (Inches): 7.00 Weight (Pounds): 150 Objective GENERAL: A well-developed male, NAD HEENT: Fairly negative. Extraocular movements are grossly intact. Oropharynx is moist. NECK: Supple. No adenopathy. LUNGS: bronchial breath sounds left CARDIAC: Normal S1, S2. Regular rate and rhythm without murmurs, rubs, or gallops. ABDOMEN: Overall soft, nontender, and nondistended. EXTREMITIES: No cyanosis, clubbing, or edema. NEUROLOGIC: Grossly nonfocal. SALO SHERMAN Feb 24, 2017 09:06
[2017-02-24] MEDS: Aspirin Baby 81mg ORAL SCH (09:22)
[2017-02-24] MEDS: Heparin 5000 units/ml inj SUBQ SCH ×2 (09:24→20:02)
[2017-02-24 12:00] VITALS: BP 141/76
[2017-02-24] MEDS: cefTRIAXone 1gm/NS 55ml IVPB SCH ×2 (12:28)
--- NOTE | 2017-02-24 15:27 | Infectious Diseases Prog Note ---
Assessment/Plan Assessment/Plan A; CAP COPD HPN Acute renal failure improving P: Continue Rocephin & Zithromax At time of discharge PO Levaquin to complete one week treatment Subjective ROS Limited/Unobtainable: No Constitutional: Reports: no symptoms, other - feels better Respiratory: Reports: productive cough Cardiovascular: Reports: no symptoms Gastrointestinal/Abdominal: Reports: no symptoms Genitourinary: Reports: no symptoms Allergies: Coded Allergies: No Known Allergies (Unverified , 02/20/17) Objective Vital Signs Last 24 Hour Vital Signs Date Time Temp Pulse Resp B/P (MAP) Pulse Ox O2 Delivery O2 Flow Rate FiO2 02/24/17 12:00 62 02/24/17 12:00 97.6 60 19 141/76 96 Nasal Cannula 2.0 02/24/17 10:00 61 18 Room Air 21 02/24/17 08:00 97.0 59 20 168/92 95 Nasal Cannula 2.0 02/24/17 08:00 64 02/24/17 05:07 185/96 02/24/17 04:00 98.0 68 20 186/95 96 Nasal Cannula 2.0 02/24/17 04:00 68 02/24/17 00:00 98.1 68 18 145/80 96 Nasal Cannula 2.0 02/24/17 00:00 63 02/23/17 20:00 98.6 62 20 136/74 95 Nasal Cannula 2.0 02/23/17 19:58 63 02/23/17 17:02 65 02/23/17 16:00 98.4 125 20 130/74 95 Nasal Cannula 2.0 Height (Feet): 5 Height (Inches): 7.00 Weight (Pounds): 150 General Appearance: no acute distress HEENT: mucous membranes moist Respiratory/Chest: lungs clear Cardiovascular: normal rate Abdomen: soft, non tender Extremities: no edema Neurologic/Psychiatric: alert, oriented x 3, responsive Current Medications Medications (Trade) Dose Ordered Sig/Rola Route PRN Reason Start Time Stop Time Status Last Admin Dose Admin Aspirin (ASA) 81 mg DAILY ORAL 02/21/17 09:00 03/23/17 08:59 02/24/17 09:22 Azithromycin 500 mg/Sodium Chloride 275 ml @ 275 mls/hr DAILY@1999 IV 02/22/17 20:00 03/01/17 19:59 02/23/17 20:00 Ceftriaxone Sodium 1 gm/ Sodium Chloride 55 ml @ 110 mls/hr Q24H IVPB 02/22/17 11:00 03/01/17 10:59 02/24/17 12:28 Chlorhexidine Gluconate (Reina-Hex 2%) 1 applic DAILY@2000 TOPIC 02/22/17 20:00 03/24/17 19:59 02/23/17 20:17 Clonidine HCl (Catapres) 0.1 mg Q4H PRN ORAL SBP > 150 mmHg 02/23/17 09:00 03/25/17 08:59 02/24/17 05:07 Finasteride (Proscar) 5 mg DAILY ORAL 02/21/17 09:00 03/23/17 08:59 02/24/17 09:22 Heparin Sodium (Porcine) (Heparin 5000 units/ml) 5,000 units EVERY 12 HOURS SUBQ 02/21/17 09:00 03/23/17 08:59 02/24/17 09:24 Levalbuterol HCl (Xopenex) 0.63 mg EVERY 8 HOURS PRN HHN Shortness of Breath 02/23/17 15:00 02/28/17 23:59 Midodrine (Pro-Amatine) 2.5 mg BID ORAL 02/21/17 09:00 03/23/17 08:59 02/22/17 09:51 Pantoprazole (Protonix) 40 mg DAILY ORAL 02/21/17 18:00 03/23/17 17:59 02/24/17 09:22 JOHN DANIELSON Feb 24, 2017 15:27
[2017-02-24 16:00] VITALS: BP 150/74
[2017-02-24] MEDS ORDERED: Vancomycin 1250mg/D5W 250ml IVPB ONE (18:30)
[2017-02-24] MEDS ORDERED: Vancomycin 1.5 GM/D5W 250ML IVPB ONE (18:30)
[2017-02-24] MEDS: Piperacillin/Tazobactam 3.375 GM in NS 110 ML IVPB SCH (18:56)
[2017-02-24 20:00] VITALS: BP 151/68
[2017-02-24] MEDS: Dyna-Hex 2% Top Sol 2oz TOPIC SCH (20:00)
--- NOTE | 2017-02-24 21:48 | Diagnostic Imaging Report ---
Indication: Chest pain Technique: Continuous helical transaxial imaging of the chest was obtained from the thoracic inlet to the upper abdomen. No intravenous contrast was administered. Coronal 2-D reformats were also obtained. Total Dose length Product (DLP): 731.[address] Dose Index Volume (CTDIvol): 19.35 mGy Comparison: none Findings: Extensive left perihilar and left lower lobe consolidation demonstrated with air bronchograms consistent with pneumonia. Mild to moderate bilateral pleural effusions are present larger on the left compared to the right. Pacemaker noted. Aorta is moderately calcified. Central venous catheter noted. Right posterior basilar atelectasis noted. Nonspecific hypodensities in the liver demonstrated. Aorta is moderately calcified. Gallstones suspected. Implanted device noted in the area of the left atrial appendage. IMPRESSION: Extensive left basilar consolidation likely pneumonia. Please correlate clinically. Bilateral pleural effusions larger on the left. Atherosclerotic disease Pacemaker Central venous catheters in good position. Liver hypodensity is nonspecific. Suspected gallstones versus sludge. Degenerative changes of the spine. Metallic implant noted in the area of the left atrial appendage The CT scanner at [facility], [place] is accredited by the [employer] [place] and the scans are performed using dose optimization techniques as appropriate to a performed exam including Automatic Exposure control.
[2017-02-24] MEDS: Azithromycin 500 MG in NS 275 ML IV SCH (22:34)
[2017-02-25] VITALS: BP 141/71
--- NOTE | 2017-02-25 03:00 | Progress Note ---
DATE: 02/23/2017 CARDIOLOGY PROGRESS NOTE Late entry for 02/23/2017. SUBJECTIVE: The patient continues to have congestion and shortness of breath. OBJECTIVE: VITAL SIGNS: Blood pressure parameters are labile with ranging from 139/60 to 177/59. Height rate 65 to 91. Respiratory rate 18 to 23. The patient is afebrile. LUNGS: Coarse breath sounds. Scattered rhonchi. HEART: Regular rhythm and rate. Normal S1, S2. ABDOMEN: Soft. EXTREMITIES: No edema. IMPRESSION: 1. Pneumonia. 2. Hypoxia. 3. Hypertensive heart disease. 4. Paroxysmal atrial fibrillation. 5. Conduction system disease. 6. Sepsis with recovered shock. PLAN: 1. Antimicrobials. 2. Respiratory hygiene. 3. Cardiovascular regimen with ongoing titration to optimize blood pressure control. 4. Titrate oxygen supplementation. 5. We will follow. Sriram Collins M.D. DR: BRICE JOB#: [id number] CC:
[2017-02-25 04:00] VITALS: BP 155/81
[2017-02-25] MEDS: Piperacillin/Tazobactam 3.375 GM in NS 110 ML IVPB SCH ×3 (05:50→22:50)
[2017-02-25 06:53] LABS: BASOPHILS % (AUTO) 0.6 % (0.0-2.0); EOSINOPHILS % (AUTO) 2.2 % (0.0-3.0); HEMATOCRIT 31.5 % (42.0-52.0); HEMOGLOBIN 10.2 G/DL (14.2-18.0); LYMPHOCYTES % (AUTO) 7.3 % (20.0-45.0); MEAN CORPUSCULAR VOLUME 100 FL (80-99); MONOCYTES % (AUTO) 5.9 % (1.0-10.0); PLATELET COUNT 247 K/UL (150-450); RED BLOOD COUNT 3.14 M/UL (4.70-6.10); RED CELL DISTRIBUTION WIDTH 12.2 % (11.6-14.8); WHITE BLOOD COUNT 11.3 K/UL (4.8-10.8)
[2017-02-25 07:22] LABS: ALANINE AMINOTRANSFERASE 41 U/L (12-78); ALBUMIN 1.4 G/DL (3.4-5.0); ALBUMIN/GLOBULIN RATIO 0.3 (1.0-2.7); ALKALINE PHOSPHATASE 74 U/L (46-116); ANION GAP 7 mmol/L (5-15); ASPARTATE AMINO TRANSFERASE 40 U/L (15-37); BILIRUBIN,TOTAL 0.3 MG/DL (0.2-1.0); BLOOD UREA NITROGEN 28 mg/dL (7-18); CARBON DIOXIDE 25 MMOL/L (21-32); CHLORIDE 109 MMOL/L (98-107); CREATININE 1.4 MG/DL (0.55-1.30); POTASSIUM 3.6 MMOL/L (3.5-5.1); SODIUM 141 MMOL/L (136-145)
[2017-02-25 08:00] VITALS: BP 138/60
--- NOTE | 2017-02-25 08:37 | General Progress Note ---
Assessment/Plan Assessment/Plan IMPRESSION: 1. Diffuse left lung infiltrate- not improved on CT chest with effusions noted 2. Hypoxemia. 3. Evidence of renal insufficiency, possibly acute on chronic. 4. Possible sepsis with transient hypotension. 5. Paroxysmal atrial fibrillation. 6. Lactic acidosis. 7. Right bundle-branch block. 8. Hypertension PLAN CT chest noted try to tap CPT ID discussed check titers- still pending ID follow up and antibiotics adjusted out of bed and PT clonidine prn hope to dc home d/w impression, plan, and exam edited and reviewed in detail care discussed with RN Subjective Allergies: Coded Allergies: No Known Allergies (Unverified , 02/20/17) Subjective care noted no sob or congestion CT chest Objective Last 24 Hour Vital Signs Date Time Temp Pulse Resp B/P (MAP) Pulse Ox O2 Delivery O2 Flow Rate FiO2 02/25/17 06:56 72 18 Room Air 21 02/25/17 04:00 61 02/25/17 04:00 97.9 63 20 155/81 93 Nasal Cannula 2.0 02/25/17 00:00 98.4 60 20 141/71 93 Nasal Cannula 2.0 02/25/17 00:00 87 02/24/17 20:01 150/74 02/24/17 20:00 61 02/24/17 20:00 98.8 66 20 151/68 92 Nasal Cannula 2.0 02/24/17 19:52 66 18 Room Air 21 02/24/17 16:00 98.2 60 19 150/74 95 Nasal Cannula 2.0 02/24/17 16:00 62 02/24/17 12:00 62 02/24/17 12:00 97.6 60 19 141/76 96 Nasal Cannula 2.0 02/24/17 10:00 61 18 Room Air 21 Intake and Output 02/24/17 02/25/17 19:00 07:00 Intake Total 600 ml 1090 ml Balance 600 ml 1090 ml Intake Oral 600 ml 400 ml IV Total 690 ml # Voids 3 3 Laboratory Tests 02/25/17 03:30: White Blood Count 11.3H, Red Blood Count 3.14L, Hemoglobin 10.2L, Hematocrit 31.5L, Mean Corpuscular Volume 100H, Mean Corpuscular Hemoglobin 32.5H, Mean Corpuscular Hemoglobin Concent 32.4, Red Cell Distribution Width 12.2, Platelet Count 247, Mean Platelet Volume 7.4, Neutrophils (%) (Auto) 84.0H, Lymphocytes ( %) (Auto) 7.3L, Monocytes (%) (Auto) 5.9, Eosinophils (%) (Auto) 2.2, Basophils (%) (Auto) 0.6, Sodium Level 141, Potassium Level 3.6, Chloride Level 109H, Carbon Dioxide Level 25, Anion Gap 7, Blood Urea Nitrogen 28H, Creatinine 1.4H, Estimat Glomerular Filtration Rate , Glucose Level 89, Calcium Level 7.0L, Magnesium Level 1.9, Total Bilirubin 0.3, Aspartate Amino Transf (AST/SGOT) 40H , Alanine Aminotransferase (ALT/SGPT) 41, Alkaline Phosphatase 74, Pro-B-Type Natriuretic Peptide 4030H, Total Protein 6.1L, Albumin 1.4L, Globulin 4.7, Albumin/Globulin Ratio 0.3L Height (Feet): 5 Height (Inches): 7.00 Weight (Pounds): 150 Objective GENERAL: A well-developed male, NAD HEENT: Fairly negative. Extraocular movements are grossly intact. Oropharynx is moist. NECK: Supple. No adenopathy. LUNGS: bronchial breath sounds left without change CARDIAC: Normal S1, S2. Regular rate and rhythm without murmurs, rubs, or gallops. ABDOMEN: Overall soft, nontender, and nondistended. EXTREMITIES: No cyanosis, clubbing, or edema. NEUROLOGIC: Grossly nonfocal. SALO SHERMAN Feb 25, 2017 08:37
[2017-02-25] MEDS: Aspirin Baby 81mg ORAL SCH (08:59)
[2017-02-25] MEDS: Heparin 5000 units/ml inj SUBQ SCH ×2 (09:00→19:50)
[2017-02-25 12:00] VITALS: BP 124/72
--- NOTE | 2017-02-25 12:13 | Infectious Diseases Prog Note ---
Assessment/Plan Assessment/Plan antibiotics : vancomycin iv, zosyn, azithromycin A 1. pneumonia 2. pleural effusions 3. renal failure improving 4. leucocytosis 5. HTN 6. COPD P 1. continue vancomycin iv, zosyn, azithromycin 2. will follow up cultures 3. thoracentesis planned 4. d/w Dr Hazle Subjective Constitutional: Denies: fever, chills Respiratory: Reports: shortness of breath - decreased, dry cough - decreased Gastrointestinal/Abdominal: Denies: nausea, vomiting, diarrhea Musculoskeletal: Denies: pain Allergies: Coded Allergies: No Known Allergies (Unverified , 02/20/17) Objective Vital Signs Last 24 Hour Vital Signs Date Time Temp Pulse Resp B/P (MAP) Pulse Ox O2 Delivery O2 Flow Rate FiO2 02/25/17 08:00 66 02/25/17 08:00 96.8 61 18 138/60 92 Room Air 02/25/17 06:56 72 18 Room Air 21 02/25/17 04:00 61 02/25/17 04:00 97.9 63 20 155/81 93 Nasal Cannula 2.0 02/25/17 00:00 98.4 60 20 141/71 93 Nasal Cannula 2.0 02/25/17 00:00 87 02/24/17 20:01 150/74 02/24/17 20:00 61 02/24/17 20:00 98.8 66 20 151/68 92 Nasal Cannula 2.0 02/24/17 19:52 66 18 Room Air 21 02/24/17 16:00 98.2 60 19 150/74 95 Nasal Cannula 2.0 02/24/17 16:00 62 Height (Feet): 5 Height (Inches): 7.00 Weight (Pounds): 150 Respiratory/Chest: lungs clear Cardiovascular: normal rate, regular rhythm, no gallop/murmur Abdomen: soft, non tender Extremities: no edema, other - right IJ catheter Laboratory Tests Test 02/25/17 03:30 White Blood Count 11.3 K/UL (4.8-10.8) H Red Blood Count 3.14 M/UL (4.70-6.10) L Hemoglobin 10.2 G/DL (14.2-18.0) L Hematocrit 31.5 % (42.0-52.0) L Mean Corpuscular Volume 100 FL (80-99) H Mean Corpuscular Hemoglobin 32.5 PG (27.0-31.0) H Mean Corpuscular Hemoglobin Concent 32.4 G/DL (32.0-36.0) Red Cell Distribution Width 12.2 % (11.6-14.8) Platelet Count 247 K/UL (150-450) Mean Platelet Volume 7.4 FL (6.5-10.1) Neutrophils (%) (Auto) 84.0 % (45.0-75.0) H Lymphocytes (%) (Auto) 7.3 % (20.0-45.0) L Monocytes (%) (Auto) 5.9 % (1.0-10.0) Eosinophils (%) (Auto) 2.2 % (0.0-3.0) Basophils (%) (Auto) 0.6 % (0.0-2.0) Sodium Level 141 MMOL/L (136-145) Potassium Level 3.6 MMOL/L (3.5-5.1) Chloride Level 109 MMOL/L (98-107) H Carbon Dioxide Level 25 MMOL/L (21-32) Anion Gap 7 mmol/L (5-15) Blood Urea Nitrogen 28 mg/dL (7-18) H Creatinine 1.4 MG/DL (0.55-1.30) H Estimat Glomerular Filtration Rate mL/min (>60) Glucose Level 89 MG/DL (74-106) Calcium Level 7.0 MG/DL (8.5-10.1) L Magnesium Level 1.9 MG/DL (1.8-2.4) Total Bilirubin 0.3 MG/DL (0.2-1.0) Aspartate Amino Transf (AST/SGOT) 40 U/L (15-37) H Alanine Aminotransferase (ALT/SGPT) 41 U/L (12-78) Alkaline Phosphatase 74 U/L (46-116) Pro-B-Type Natriuretic Peptide 4030 pg/mL (0-125) H Total Protein 6.1 G/DL (6.4-8.2) L Albumin 1.4 G/DL (3.4-5.0) L Globulin 4.7 g/dL Albumin/Globulin Ratio 0.3 (1.0-2.7) L SANDEEP HURLEY Feb 25, 2017 12:13
[2017-02-25 13:33] LABS: INR 1.1 (0.9-1.1)
[2017-02-25 16:00] VITALS: BP 145/75
[2017-02-25] MEDS: Vancomycin 750mg/NS 250ml IVPB SCH (18:32)
[2017-02-25 20:00] VITALS: BP 140/77
[2017-02-25] MEDS: Dyna-Hex 2% Top Sol 2oz TOPIC SCH (20:15)
[2017-02-25] MEDS: Azithromycin 500 MG in NS 275 ML IV SCH (20:15)
[2017-02-26] VITALS: BP 154/73
[2017-02-26 04:00] VITALS: BP 143/77
[2017-02-26] MEDS: Piperacillin/Tazobactam 3.375 GM in NS 110 ML IVPB SCH ×3 (05:26→23:06)
[2017-02-26 08:00] VITALS: BP 147/77
[2017-02-26] MEDS: Heparin 5000 units/ml inj SUBQ SCH ×2 (09:00→21:22)
--- NOTE | 2017-02-26 09:23 | General Progress Note ---
Assessment/Plan Assessment/Plan IMPRESSION: 1. Diffuse left lung infiltrate- not improved on CT chest with effusions noted 2. Hypoxemia. 3. Evidence of renal insufficiency, possibly acute on chronic. 4. Possible sepsis with transient hypotension. 5. Paroxysmal atrial fibrillation. 6. Lactic acidosis. 7. Right bundle-branch block. 8. Hypertension PLAN try to tap CPT as is still awaiting titers ID discussed check titers- still pending ID follow up and antibiotics noted out of bed and PT clonidine prn if not improved, will need bronchoscopy hope to dc home once improvement noted d/w impression, plan, and exam edited and reviewed in detail care discussed with RN Subjective Allergies: Coded Allergies: No Known Allergies (Unverified , 02/20/17) Subjective care noted and discussed no sob or congestion CT chest discussed US tap pending Objective Last 24 Hour Vital Signs Date Time Temp Pulse Resp B/P (MAP) Pulse Ox O2 Delivery O2 Flow Rate FiO2 02/26/17 08:00 68 18 Room Air 21 02/26/17 07:00 67 02/26/17 04:28 180/89 02/26/17 04:00 98.0 60 20 143/77 95 Room Air 02/26/17 00:00 98.1 70 20 154/73 97 Room Air 02/26/17 00:00 71 02/25/17 23:43 167/83 02/25/17 20:00 98.4 73 20 140/77 94 Room Air 02/25/17 20:00 67 02/25/17 19:02 65 18 Room Air 21 02/25/17 16:00 74 02/25/17 16:00 98.4 60 19 145/75 92 Room Air 02/25/17 12:00 98.2 62 18 124/72 92 Room Air 02/25/17 12:00 98.2 62 19 124/72 92 Room Air 02/25/17 11:39 60 Intake and Output 02/25/17 02/26/17 19:00 07:00 Intake Total 840 ml Balance 840 ml Intake Oral 840 ml # Voids 5 2 # Bowel Movements 2 Laboratory Tests 02/25/17 13:05: Prothrombin Time 11.6H, Prothromb Time International Ratio 1.1, Activated Partial Thromboplast Time 30 Height (Feet): 5 Height (Inches): 7.00 Weight (Pounds): 150 Objective GENERAL: A well-developed male, NAD HEENT: Fairly negative. Extraocular movements are grossly intact. Oropharynx is moist. NECK: Supple. No adenopathy. LUNGS: bronchial breath sounds left without change CARDIAC: Normal S1, S2. Regular rate and rhythm without murmurs, rubs, or gallops. ABDOMEN: Overall soft, nontender, and nondistended. EXTREMITIES: No cyanosis, clubbing, or edema. NEUROLOGIC: Grossly nonfocal. SALO SHERMAN Feb 26, 2017 09:23
--- NOTE | 2017-02-26 09:42 | Progress Note ---
DATE: 02/24/2017 CARDIOLOGY PROGRESS NOTE SUBJECTIVE: The patient had a CAT scan today of the chest, significant lung infiltrate, remains with pleural effusion. OBJECTIVE: LUNGS: Coarse breath sounds. Scattered rhonchi. HEART: Irregularly irregular rhythm. Normal S1, S2. EXTREMITIES: No edema. LABORATORY DATA: Pending. IMPRESSION: 1. Persistent pneumonia. 2. Pleural effusion. 3. Paroxysmal atrial fibrillation. 4. Ischemic cardiomyopathy. 5. History of appendage watchman device. 6. Rising blood pressure trend. 7. Permanent pacemaker. PLAN: 1. Hold midodrine. 2. Reassess for resumption of losartan. 3. Antimicrobials. 4. Consider thoracentesis. 5. Not stable for discharge. 6. Hold diuresis at this time. 7. Re-evaluate following laboratory studies. Sriram Collins M.D. DR: Sharyn JOB#: [id number] CC:
--- NOTE | 2017-02-26 09:43 | Progress Note ---
DATE: 02/25/2017 CARDIOLOGY PROGRESS NOTE SUBJECTIVE: The patient had a CT scan done yesterday, extensive pneumonia persists. He remains congested, hypoxic, and short of breath. PHYSICAL EXAMINATION: LUNGS: Course breath sounds, rhonchi, and rales. HEART: Regular rhythm and rate. Normal S1 and S2. ABDOMEN: Soft. EXTREMITIES: Trace edema. LABORATORY DATA: Reviewed. Pro-natriuretic peptide remains at 4030. Albumin 1.4. Potassium 3.6, BUN 28, and creatinine 1.4. IMPRESSION: 1. Bilateral pneumonia. 2. Hypertensive heart disease. 3. Paroxysmal atrial fibrillation. 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 5. Sepsis with recovered shock. 6. Permanent pacemaker. PLAN: 1. Antimicrobials. 2. Respiratory hygiene. 3. Immobilization. 4. Replace potassium. 5. Cautious diuresis. Sriram Collins M.D. DR: WILVER JOB#: [id number] CC:
--- NOTE | 2017-02-26 10:23 | Diagnostic Imaging Report ---
Indication: Shortness of breath Technique: XRAY Chest 1v Comparison: 02/21/2017 Findings: Right internal jugular central line is again noted. There is a left chest pacemaker. Cardiomediastinal silhouette is stable. Left lung airspace infiltrate is again noted. The bilateral costophrenic angles are blunted. Osseous structures are stable. Impression: Diffuse left lung airspace infiltrate. Bilateral costophrenic angle blunting could represent small pleural effusions.
--- NOTE | 2017-02-26 11:55 | Diagnostic Imaging Report ---
Indication: Shortness of breath Technique: XRAY Chest 1v Comparison: 02/23/2017 Findings: Heart size and mediastinal contours are stable. Left sided pacer and right IJ central line unchanged in position. There is unchanged left-sided airspace opacities with hazy opacities in the upper lung and more dense consolidation in the mid and lower left lung. Likely layering left pleural effusion. There is an unchanged small right pleural effusion. There is no pneumothorax. Oral contrast noted in the colon Impression: No significant interval change in appearance of the heart and lungs compared to one day prior.
[2017-02-26 12:00] VITALS: BP 104/51
--- NOTE | 2017-02-26 12:18 | Infectious Diseases Prog Note ---
Assessment/Plan Assessment/Plan antibiotics : vancomycin iv, zosyn, azithromycin A 1. pneumonia 2. pleural effusions 3. renal failure improving 4. leucocytosis 5. HTN 6. COPD P 1. continue vancomycin iv, zosyn, azithromycin 2. will follow up cultures 3. thoracentesis planned Subjective Constitutional: Denies: fever, chills Respiratory: Reports: productive cough - decreasing, Denies: shortness of breath Gastrointestinal/Abdominal: Denies: nausea, vomiting, diarrhea Musculoskeletal: Denies: pain Allergies: Coded Allergies: No Known Allergies (Unverified , 02/20/17) Objective Vital Signs Last 24 Hour Vital Signs Date Time Temp Pulse Resp B/P (MAP) Pulse Ox O2 Delivery O2 Flow Rate FiO2 02/26/17 08:00 68 18 Room Air 21 02/26/17 08:00 97.3 57 20 147/77 93 Room Air 02/26/17 07:00 67 02/26/17 04:28 180/89 02/26/17 04:00 98.0 60 20 143/77 95 Room Air 02/26/17 00:00 98.1 70 20 154/73 97 Room Air 02/26/17 00:00 71 02/25/17 23:43 167/83 02/25/17 20:00 98.4 73 20 140/77 94 Room Air 02/25/17 20:00 67 02/25/17 19:02 65 18 Room Air 21 02/25/17 16:00 74 02/25/17 16:00 98.4 60 19 145/75 92 Room Air Height (Feet): 5 Height (Inches): 7.00 Weight (Pounds): 150 Respiratory/Chest: lungs clear Cardiovascular: normal rate, regular rhythm, no gallop/murmur Abdomen: soft, non tender Extremities: other - + edema, right IJ catheter Laboratory Tests Test 02/25/17 13:05 Prothrombin Time 11.6 SEC (9.30-11.50) H Prothromb Time International Ratio 1.1 (0.9-1.1) Activated Partial Thromboplast Time 30 SEC (23-33) SANDEEP HURLEY Feb 26, 2017 12:18
--- NOTE | 2017-02-26 14:10 | Pre-Procedure Note/Attestation ---
Pre-Procedure Note/Attestation Complete Prior to Procedure Planned Procedure: left Procedure Narrative: left US guided thoracentesis Indications for Procedure Pre-Operative Diagnosis: pleural effusion Attestation I attest that I discussed the nature of the procedure; its benefits; risks and complications; and alternatives (and the risks and benefits of such alternatives ), prior to the procedure, with the patient (or the patient's legal outbound sales representative). I attest that, if there was a reasonable possibility of needing a blood transfusion, the patient (or the patient's legal outbound sales representative) was given the [facility] standardized written summary, pursuant to the Ranjit Maitland Blood Safety Act ([place] Health and Safety Code # 1645, as amended). I attest that I re-evaluated the patient just prior to the surgery and that there has been no change in the patient's H&P, except as documented below: Juan J Johnson M.D. Feb 26, 2017 14:10
--- NOTE | 2017-02-26 14:12 | Operative Note - PDOC ---
Operative Note Operative Note Date of Operation/Procedure: Feb 26, 2017 Chief Complaint: pleural effusion - requesting therapeutic/diganostic thoracentesis - left Pre-op Diagnosis: pleural effusion Procedure: US guided elft thoracentesis - diagnositic and therapeutic Post-op Diagnosis: pleural effusion Post-op Diagnosis: same as pre-op Anesthesia: local Specimen: yes Complications: none Condition: stable Estimated Blood Loss: none Drains: none Implant(s) used?: No Indications for Procedure left pleural effusion Description of Procedure informed consent obtained. successful US guided diagnostic and therapeutic thoracentesis. removed 950 ml fluid and sent for requested studies. follow up chest xray ordered. Juan J Johnson M.D. Feb 26, 2017 14:12
--- NOTE | 2017-02-26 14:14 | Diagnostic Imaging Report ---
Indication: Status post thoracentesis on the left Technique: XRAY Chest 1v Comparison: Chest radiograph from earlier the same day Findings: Interval reduction in left-sided pleural effusion status post thoracentesis. No definite pneumothorax. There is haziness of the pulmonary vascularity possibly related to pulmonary edema, potentially reexpansion pulmonary edema. There is persistent trace right pleural effusion. Bibasilar atelectasis. Heart size and mediastinal contours are stable. Impression: Interval decrease in left-sided pleural effusion status post thoracentesis. No definite pneumothorax. Haziness of the pulmonary vascularity and patchy perihilar airspace opacities possibly reflective of pulmonary edema, partially reexpansion pulmonary edema after thoracentesis. Clinical correlation and follow-up exam recommended.
[2017-02-26] MEDS: Aspirin Baby 81mg ORAL SCH (15:14)
[2017-02-26 16:00] VITALS: BP 134/82
--- NOTE | 2017-02-26 16:20 | Diagnostic Imaging Report ---
Indications: Pleural effusion Technique: Ultrasound used to localize optimal puncture site. Sterile prepping and draping left chest, including use of sterile ultrasound probe cover and sterile ultrasound gel. Local anesthesia with 1% lidocaine. Under real-time ultrasound guidance, puncture pleural space using thoracentesis needle. Stylet removed. Catheter placed to vacuum bottle suction. Total 950 milliliters of fluid aspirated. Patient tolerated procedure well, without immediate complication. Findings: Followup sonography demonstrates complete resolution of pleural fluid. Impression: Successful ultrasound-guided thoracentesis, yielding 950 milliliters of fluid.
[2017-02-26] MEDS: Vancomycin 750mg/NS 250ml IVPB SCH (18:30)
[2017-02-26 20:00] VITALS: BP 159/76
[2017-02-26] MEDS: Dyna-Hex 2% Top Sol 2oz TOPIC SCH (21:19)
[2017-02-26] MEDS: Azithromycin 500 MG in NS 275 ML IV SCH (21:19)
[2017-02-27 00:58] VITALS: BP 161/77
[2017-02-27 04:00] VITALS: BP 191/97
--- NOTE | 2017-02-27 04:30 | Progress Note ---
DATE: 02/26/2017 CARDIOLOGY PROGRESS NOTE SUBJECTIVE: The patient is status post left thoracentesis with almost one liter fluid removed. No complications noted. The patient with somewhat less congestion and shortness of breath. OBJECTIVE: VITAL SIGNS: Blood pressure 143/77 to 180/89, heart rate 68, respirations 18, and afebrile. NECK: Supple. LUNGS: With few rales. breath sounds on the left. HEART: Regular rhythm and rate. Normal S1 and S2. ABDOMEN: Soft. EXTREMITIES: No edema. IMPRESSION: 1. Extensive pneumonia. 2. Hypertensive heart disease. 3. Chronic diastolic congestive heart failure. 4. Permanent pacemaker. 5. Paroxysmal atrial fibrillation. 6. Sepsis with shock, now recovered. PLAN: 1. Continue observation. 2. Cardiac monitoring. 3. Respiratory hygiene. 4. Bronchodilators. 5. Antimicrobials. 6. Diuresis efforts with potassium replacement based on clinical parameters. 7. We will review follow up chest x-ray and adjust accordingly. Sriram Collins M.D. DR: HETAL JOB#: [id number] CC:
[2017-02-27 05:36] LABS: HEMATOCRIT 34.3 % (42.0-52.0); HEMOGLOBIN 11.5 G/DL (14.2-18.0); MEAN CORPUSCULAR VOLUME 100 FL (80-99); PLATELET COUNT 336 K/UL (150-450); RED BLOOD COUNT 3.42 M/UL (4.70-6.10); RED CELL DISTRIBUTION WIDTH 12.2 % (11.6-14.8)
[2017-02-27] MEDS: Piperacillin/Tazobactam 3.375 GM in NS 110 ML IVPB SCH ×3 (05:58→23:00)
[2017-02-27 06:11] LABS: ALANINE AMINOTRANSFERASE 47 U/L (12-78); ALBUMIN 1.5 G/DL (3.4-5.0); ALBUMIN/GLOBULIN RATIO 0.3 (1.0-2.7); ALKALINE PHOSPHATASE 84 U/L (46-116); ANION GAP 5 mmol/L (5-15); ASPARTATE AMINO TRANSFERASE 42 U/L (15-37); BILIRUBIN,TOTAL 0.4 MG/DL (0.2-1.0); BLOOD UREA NITROGEN 24 mg/dL (7-18); CALCIUM 8.2 MG/DL (8.5-10.1); CARBON DIOXIDE 30 MMOL/L (21-32); CHLORIDE 108 MMOL/L (98-107); CREATININE 1.6 MG/DL (0.55-1.30); POTASSIUM 4.1 MMOL/L (3.5-5.1); SODIUM 142 MMOL/L (136-145)
[2017-02-27 08:00] VITALS: BP 151/75
--- NOTE | 2017-02-27 08:35 | General Progress Note ---
Assessment/Plan Assessment/Plan IMPRESSION: 1. Diffuse left lung infiltrate- not improved on CT chest with effusions noted 2. Hypoxemia. 3. Evidence of renal insufficiency, possibly acute on chronic. 4. Possible sepsis with transient hypotension. 5. Paroxysmal atrial fibrillation. 6. Lactic acidosis. 7. Right bundle-branch block. 8. Hypertension 9. s/p tap PLAN CPT as is negative titers ID discussed ID follow up and antibiotics noted follow up cytology if not improved, will need bronchoscopy hope to dc home with very close outpatient monitoring d/w and daughter impression, plan, and exam edited and reviewed in detail care discussed with RN Subjective Allergies: Coded Allergies: No Known Allergies (Unverified , 02/20/17) Subjective care noted and discussed d/w daughter much improved after tap imaging improved Objective Last 24 Hour Vital Signs Date Time Temp Pulse Resp B/P (MAP) Pulse Ox O2 Delivery O2 Flow Rate FiO2 02/27/17 08:00 97.2 62 18 151/75 97 Nasal Cannula 2.0 02/27/17 06:04 191/97 02/27/17 04:00 98.3 60 20 191/97 98 Nasal Cannula 2.0 02/27/17 04:00 61 02/27/17 00:58 97.7 60 20 161/77 97 Nasal Cannula 2.0 02/27/17 00:00 63 02/26/17 20:29 63 18 Room Air 21 02/26/17 20:00 60 02/26/17 20:00 98.3 59 22 159/76 97 Nasal Cannula 2.0 02/26/17 16:00 97.9 67 22 134/82 97 Nasal Cannula 2.0 02/26/17 15:27 60 02/26/17 12:00 97.6 85 20 104/51 94 Nasal Cannula 2.0 02/26/17 11:55 70 02/26/17 09:20 68 Intake and Output 02/26/17 02/27/17 19:00 07:00 Intake Total 670.0 ml 609.75 ml Output Total 200 ml 550 ml Balance 470.0 ml 59.75 ml Intake Oral 560 ml 200 ml IV Total 110.0 ml 409.75 ml Output Urine Total 200 ml 550 ml # Voids 6 3 Laboratory Tests 02/26/17 12:15: Coccidioides Antibody (Comp Fix) [Pending] 02/26/17 13:25: Body Fluid Source Pleural, Body Fluid Volume 24, Body Fluid Appearance Hazy, Body Fluid RBC 850, Body Fluid Total Nucleated Cells 6050, Body Fluid Polynuclear WBCs (%) 91, Body Fluid Mononuclear WBCs (%) 6, Body Fluid Mesothelial Cells (%) 3 02/27/17 04:20: White Blood Count 12.0H, Red Blood Count 3.42L, Hemoglobin 11.5L, Hematocrit 34.3L, Mean Corpuscular Volume 100H, Mean Corpuscular Hemoglobin 33.6H, Mean Corpuscular Hemoglobin Concent 33.6, Red Cell Distribution Width 12.2, Platelet Count 336, Mean Platelet Volume 7.1, Neutrophils (%) (Auto) , Lymphocytes (%) ( Auto) , Monocytes (%) (Auto) , Eosinophils (%) (Auto) , Basophils (%) (Auto) , Neutrophils % (Manual) [Pending], Lymphocytes % (Manual) [Pending], Platelet Estimate [Pending], Platelet Morphology [Pending], Sodium Level 142, Potassium Level 4.1, Chloride Level 108H, Carbon Dioxide Level 30, Anion Gap 5, Blood Urea Nitrogen 24H, Creatinine 1.6H, Estimat Glomerular Filtration Rate , Glucose Level 98, Calcium Level 8.2L, Total Bilirubin 0.4, Aspartate Amino Transf (AST/SGOT) 42H, Alanine Aminotransferase (ALT/SGPT) 47, Alkaline Phosphatase 84, Pro-B-Type Natriuretic Peptide 1368H, Total Protein 6.5, Albumin 1.5L, Globulin 5.0, Albumin/Globulin Ratio 0.3L Height (Feet): 5 Height (Inches): 7.00 Weight (Pounds): 150 Objective GENERAL: A well-developed male, NAD HEENT: Fairly negative. Extraocular movements are grossly intact. Oropharynx is moist. NECK: Supple. No adenopathy. LUNGS: bronchial breath sounds much improved CARDIAC: Normal S1, S2. Regular rate and rhythm without murmurs, rubs, or gallops. ABDOMEN: Overall soft, nontender, and nondistended. EXTREMITIES: No cyanosis, clubbing, or edema. NEUROLOGIC: Grossly nonfocal. SALO SHERMAN Feb 27, 2017 08:35
[2017-02-27] MEDS: Aspirin Baby 81mg ORAL SCH (08:40)
[2017-02-27] MEDS: Heparin 5000 units/ml inj SUBQ SCH ×2 (08:45→20:56)
--- NOTE | 2017-02-27 10:20 | Infectious Diseases Prog Note ---
Assessment/Plan Assessment/Plan A; CAP Pleural effusion, tapped yesterday COPD HPN Acute renal failure improving P: Continue Zosyn, Vancomycin & Zithromax will f/u cultures Subjective ROS Limited/Unobtainable: No Constitutional: Reports: other - feels better Respiratory: Reports: other - had thoracentesis yesterday 950 cc of fluid removed Cardiovascular: Reports: no symptoms Gastrointestinal/Abdominal: Reports: no symptoms Genitourinary: Reports: no symptoms Allergies: Coded Allergies: No Known Allergies (Unverified , 02/20/17) Objective Vital Signs Last 24 Hour Vital Signs Date Time Temp Pulse Resp B/P (MAP) Pulse Ox O2 Delivery O2 Flow Rate FiO2 02/27/17 08:54 60 02/27/17 08:00 97.2 62 18 151/75 97 Nasal Cannula 2.0 02/27/17 07:58 61 20 Room Air 02/27/17 06:04 191/97 02/27/17 04:00 98.3 60 20 191/97 98 Nasal Cannula 2.0 02/27/17 04:00 61 02/27/17 00:58 97.7 60 20 161/77 97 Nasal Cannula 2.0 02/27/17 00:00 63 02/26/17 20:29 63 18 Room Air 21 02/26/17 20:00 60 02/26/17 20:00 98.3 59 22 159/76 97 Nasal Cannula 2.0 02/26/17 16:00 97.9 67 22 134/82 97 Nasal Cannula 2.0 02/26/17 15:27 60 02/26/17 12:00 97.6 85 20 104/51 94 Nasal Cannula 2.0 02/26/17 11:55 70 Height (Feet): 5 Height (Inches): 7.00 Weight (Pounds): 150 General Appearance: no acute distress HEENT: mucous membranes moist Respiratory/Chest: normal breath sounds Cardiovascular: normal rate Abdomen: soft, non tender Extremities: no edema Neurologic/Psychiatric: alert, oriented x 3, responsive Laboratory Tests Test 02/26/17 12:15 02/26/17 13:25 02/27/17 04:20 Coccidioides Antibody (Comp Fix) Pending Body Fluid Source Pleural Body Fluid Volume 24 mL Body Fluid Appearance Hazy Body Fluid RBC 850 /CUMM Body Fluid Total Nucleated Cells 6050 /CUMM Body Fluid Polynuclear WBCs (%) 91 % Body Fluid Mononuclear WBCs (%) 6 % Body Fluid Mesothelial Cells (%) 3 % White Blood Count 12.0 K/UL (4.8-10.8) H Red Blood Count 3.42 M/UL (4.70-6.10) L Hemoglobin 11.5 G/DL (14.2-18.0) L Hematocrit 34.3 % (42.0-52.0) L Mean Corpuscular Volume 100 FL (80-99) H Mean Corpuscular Hemoglobin 33.6 PG (27.0-31.0) H Mean Corpuscular Hemoglobin Concent 33.6 G/DL (32.0-36.0) Red Cell Distribution Width 12.2 % (11.6-14.8) Platelet Count 336 K/UL (150-450) Mean Platelet Volume 7.1 FL (6.5-10.1) Neutrophils (%) (Auto) % (45.0-75.0) Lymphocytes (%) (Auto) % (20.0-45.0) Monocytes (%) (Auto) % (1.0-10.0) Eosinophils (%) (Auto) % (0.0-3.0) Basophils (%) (Auto) % (0.0-2.0) Differential Total Cells Counted 100 Neutrophils % (Manual) 82 % (45-75) H Lymphocytes % (Manual) 11 % (20-45) L Monocytes % (Manual) 3 % (1-10) Eosinophils % (Manual) 4 % (0-3) H Basophils % (Manual) 0 % (0-2) Band Neutrophils 0 % (0-8) Platelet Estimate Adequate Platelet Morphology Normal Red Blood Cell Morphology Normal Sodium Level 142 MMOL/L (136-145) Potassium Level 4.1 MMOL/L (3.5-5.1) Chloride Level 108 MMOL/L (98-107) H Carbon Dioxide Level 30 MMOL/L (21-32) Anion Gap 5 mmol/L (5-15) Blood Urea Nitrogen 24 mg/dL (7-18) H Creatinine 1.6 MG/DL (0.55-1.30) H Estimat Glomerular Filtration Rate mL/min (>60) Glucose Level 98 MG/DL (74-106) Calcium Level 8.2 MG/DL (8.5-10.1) L Total Bilirubin 0.4 MG/DL (0.2-1.0) Aspartate Amino Transf (AST/SGOT) 42 U/L (15-37) H Alanine Aminotransferase (ALT/SGPT) 47 U/L (12-78) Alkaline Phosphatase 84 U/L (46-116) Pro-B-Type Natriuretic Peptide 1368 pg/mL (0-125) H Total Protein 6.5 G/DL (6.4-8.2) Albumin 1.5 G/DL (3.4-5.0) L Globulin 5.0 g/dL Albumin/Globulin Ratio 0.3 (1.0-2.7) L Current Medications Medications (Trade) Dose Ordered Sig/Rola Route PRN Reason Start Time Stop Time Status Last Admin Dose Admin Aspirin (ASA) 81 mg DAILY ORAL 02/21/17 09:00 03/23/17 08:59 02/27/17 08:40 Azithromycin 500 mg/Sodium Chloride 275 ml @ 275 mls/hr DAILY@1999 IV 02/22/17 20:00 03/01/17 19:59 02/26/17 21:19 Chlorhexidine Gluconate (Reina-Hex 2%) 1 applic DAILY@1999 TOPIC 02/22/17 20:00 03/24/17 19:59 02/26/17 21:19 Clonidine HCl (Catapres Tab) 0.1 mg Q4H PRN ORAL SBP > 150 mmHg 02/23/17 09:00 03/25/17 08:59 02/27/17 06:04 Finasteride (Proscar) 5 mg DAILY ORAL 02/21/17 09:00 03/23/17 08:59 02/27/17 08:40 Furosemide (Lasix) 40 mg DAILY IV 02/27/17 09:00 03/29/17 08:59 02/27/17 08:40 Heparin Sodium (Porcine) (Heparin 5000 units/ml) 5,000 units EVERY 12 HOURS SUBQ 02/21/17 09:00 03/23/17 08:59 02/27/17 08:45 Levalbuterol HCl (Xopenex) 0.63 mg EVERY 8 HOURS PRN HHN Shortness of Breath 02/23/17 15:00 02/28/17 23:59 Pantoprazole (Protonix) 40 mg DAILY ORAL 02/21/17 18:00 03/23/17 17:59 02/27/17 08:40 Piperacillin Sod/ Tazobactam Sod 3.375 gm/Sodium Chloride 110 ml @ 27.5 mls/hr EVERY 8 HOURS IVPB 02/24/17 18:30 03/01/17 18:29 02/27/17 05:58 Potassium Chloride (K-Dur) 20 meq DAILY ORAL 02/27/17 09:00 03/29/17 08:59 02/27/17 08:40 Vancomycin HCl (Vanco rx to dose) 1 ea DAILY PRN MISC Per rx protocol 02/24/17 17:15 03/26/17 17:14 Vancomycin/Sodium Chloride 250 ml @ 166.667 mls/hr Q24H IVPB 02/25/17 18:30 03/02/17 18:29 02/26/17 18:30 JOHN DANIELSON Feb 27, 2017 10:20
--- NOTE | 2017-02-27 10:29 | Diagnostic Imaging Report ---
Indication: Dyspnea Comparison: 02/26/2017 A single view chest radiograph was obtained. Findings: Left pulmonary infiltrate noted. There may be mild interstitial edema present. Please correlate clinically. Pacemaker and right jugular line appear stable. Heart size is borderline enlarged and stable. There may be a small left pleural effusion. IMPRESSION: Left pulmonary infiltrate. No significant change. Query mild interstitial edema
[2017-02-27 12:00] VITALS: BP 129/70
--- NOTE | 2017-02-27 13:50 | Diagnostic Imaging Report ---
Indication: Dysphasia Procedure and findings: Real-time fluoroscopic imaging performed in a lateral projection in conjunction with the speech pathologist evaluation. Variable consistencies of barium given per mouth. Findings: Significant abnormalities of both oral and pharyngeal phases of swallowing are demonstrated. Total fluoroscopic time 192 seconds. No definite aspiration identified. Trace laryngeal penetration noted with thin barium. Abnormal video swallow. Please refer to speech pathology evaluation for more information.
[2017-02-27 16:52] VITALS: BP 130/68
[2017-02-27] MEDS: Vancomycin 750mg/NS 250ml IVPB SCH ×2 (17:29→18:23)
[2017-02-27 20:00] VITALS: BP 99/44
[2017-02-27] MEDS: Dyna-Hex 2% Top Sol 2oz TOPIC SCH (20:55)
[2017-02-27] MEDS: Azithromycin 500 MG in NS 275 ML IV SCH (20:55)
[2017-02-28] VITALS: BP 120/70
[2017-02-28 04:00] VITALS: BP 145/89
--- NOTE | 2017-02-28 04:47 | Progress Note ---
DATE: 02/27/2017 CARDIOLOGY PROGRESS NOTE SUBJECTIVE: The patient has persistent congestion and cough. Radiograph of the chest today was without significant change in left-sided infiltrate and mild associated edema. OBJECTIVE: VITAL SIGNS: The patient's blood pressure is quite labile, at times 151/75 to 191/97, heart rate 60, and respiratory rate 20. No fevers. LUNGS: Bilateral breath sounds with rhonchi and rales, left greater than right. HEART: Irregularly irregular rhythm. Normal S1, S2. Monitored rhythm paced. ABDOMEN: Soft. EXTREMITIES: There is no edema. LABORATORY DATA: White count 12, hemoglobin 11.5. Potassium 4.1. Pro-natriuretic peptide has decreased following diuresis to 1368 and albumin is 1.5. PLAN: 1. Antibiotics. 2. Respiratory hygiene. 3. Additional diuresis. 4. Maintain the cardiovascular drugs without change, but antihypertensive regimen will be advanced for blood pressure spikes. Sriram Collins M.D. DR: WILVER JOB#: [id number] CC:
[2017-02-28] MEDS: Piperacillin/Tazobactam 3.375 GM in NS 110 ML IVPB SCH (06:32)
[2017-02-28 08:00] VITALS: BP 159/79
--- NOTE | 2017-02-28 08:37 | General Progress Note ---
Assessment/Plan Assessment/Plan IMPRESSION: 1. Diffuse left lung infiltrate- not improved on CT chest with effusions noted 2. Hypoxemia. 3. Evidence of renal insufficiency, possibly acute on chronic. 4. Possible sepsis with transient hypotension. 5. Paroxysmal atrial fibrillation. 6. Lactic acidosis. 7. Right bundle-branch block. 8. Hypertension 9. s/p tap PLAN cytology initially findings negative d/w pathologist negative titers ID discussed- po levaquin for now follow up final stains if not improved, will need bronchoscopy hope to dc home with very close outpatient monitoring d/w and daughter- aware that low threshold to readmit and will need further evaluation of abnormal cxr unless clears will provide home health to monitor closely impression, plan, and exam edited and reviewed in detail care discussed with RN Subjective Allergies: Coded Allergies: No Known Allergies (Unverified , 02/20/17) Subjective care noted and discussed d/w daughter and at length would like to take him home initial cytology negative Objective Last 24 Hour Vital Signs Date Time Temp Pulse Resp B/P (MAP) Pulse Ox O2 Delivery O2 Flow Rate FiO2 02/28/17 07:01 62 18 Room Air 02/28/17 04:00 98.8 66 20 145/89 94 Room Air 02/28/17 04:00 112 02/28/17 00:00 98.1 115 20 120/70 94 Room Air 02/27/17 20:00 97.7 117 20 99/44 95 Room Air 02/27/17 20:00 114 02/27/17 19:50 140 18 Room Air 02/27/17 16:53 112 02/27/17 16:52 98.2 100 20 130/68 96 Nasal Cannula 2.0 02/27/17 15:16 123 02/27/17 12:00 97.9 60 18 129/70 96 Nasal Cannula 2.0 02/27/17 12:00 95 02/27/17 08:54 60 Intake and Output 02/27/17 02/28/17 19:00 07:00 Intake Total 430.0 ml 671.66 ml Output Total 500 ml 500 ml Balance -70.0 ml 171.66 ml Intake Oral 320 ml 120 ml IV Total 110.0 ml 551.66 ml Output Urine Total 500 ml 500 ml # Voids 4 Laboratory Tests 02/27/17 17:36: Vancomycin Level Trough 9.1 Height (Feet): 5 Height (Inches): 7.00 Weight (Pounds): 150 Objective GENERAL: A well-developed male, NAD HEENT: Fairly negative. Extraocular movements are grossly intact. Oropharynx is moist. NECK: Supple. No adenopathy. LUNGS: bronchial breath sounds improved; no rhonchi or wheeze CARDIAC: Normal S1, S2. Regular rate and rhythm without murmurs, rubs, or gallops. ABDOMEN: Overall soft, nontender, and nondistended. EXTREMITIES: No cyanosis, clubbing, or edema. NEUROLOGIC: Grossly nonfocal. SALO SHERMAN Feb 28, 2017 08:37
[2017-02-28] MEDS ORDERED: Losartan 50mg tab ORAL SCH (09:00)
[2017-02-28] MEDS ORDERED: Vancomycin 1gm in D5W 275ml IVPB SCH (09:00)
[2017-02-28] MEDS: Aspirin Baby 81mg ORAL SCH (09:10)
[2017-02-28 09:11] VITALS: BP 159/79
[2017-02-28] MEDS: Heparin 5000 units/ml inj SUBQ SCH (09:14)
[2017-02-28] MEDS ORDERED: NS 275ml ONE ×2 (11:44)
[2017-02-28] MEDS ORDERED: NS 500ML ONE (11:44)
[2017-02-28] MEDS ORDERED: Tubing IV Secondary IV ONE ×2 (11:44)
--- NOTE | 2017-03-01 01:00 | Progress Note ---
DATE: 02/28/2017 CARDIOLOGY PROGRESS NOTE SUBJECTIVE: The cough and shortness of breath have diminished, but has not resolved completely. The patient responded well to diuretic therapy. OBJECTIVE: VITAL SIGNS: Blood pressure 159/79, pulse 67, respiratory rate 20, and afebrile. NECK: Supple. LUNGS: With bilateral breath sounds. Rales. No wheezing. HEART: Regular rhythm and rate. Normal S1 and S2. Monitored rhythm paced. ABDOMEN: Soft. EXTREMITIES: No edema. IMPRESSION: 1. Extensive pneumonia. 2. Acute on chronic diastolic congestive heart failure. 3. Severe protein-calorie malnutrition. 4. Acute on chronic renal failure. 5. History of left atrial . PLAN: transition to oral therapy, complete recovery at home. Cardiovascular regimen reviewed and discussed including maintenance diuretic dose. Sriram Collins M.D. DR: RYAN JOB#: [id number] CC:
--- NOTE | 2017-03-03 11:06 | Cardiology Report ---
APPROVED REPORT EXAM: Two-dimensional and M-mode echocardiogram with Doppler and color Doppler. INDICATION BRADYCARDIA M-Mode DIMENSIONS IVSd1.5 (0.7-1.1cm)Left Atrium (MM)3.5 (1.6-4.0cm) LVDd4.3 (3.5-5.6cm)Aortic Root3.4 (2.0-3.7cm) PWd1.3 (0.7-1.1cm)Aortic Cusp Exc.1.0 (1.5-2.0cm) IVSs1.8 cm LVDs2.8 (2.5-4.0cm) PWs1.5 cm Normal left ventricular chamber size, systolic function and wall motion. Left ventricular ejection fraction estimated to be 65 %. No evidence of left ventricular hypertrophy. Small hemodynamically insignificant plural effusion. All other cardiac chamber sizes are within normal limits. Thickened mitral valve leaflets with normal excursion. Mitral annulus and aortic root calcification. Pulmonic valve not well visualized Normal tricuspid valve structure. IVC at normal size with physiologic collapse. Pacemaker wire present in the right side chambers. A color flow and spectral Doppler study was performed and revealed: No aortic regurgitation. Peak aortic valve gradient of 35 mm Hg and a mean of 17 mmHg. Aortic valve area 1.5 cm2 calculated by continuity equation. Mild to Moderate mitral regurgitation. Normal left ventricular diastolic function. Mild tricuspid regurgitation. Tricuspid systolic velocities suggests peak right ventricular systolic pressure of 37 mmHg consistent with mild pulmonary hypertension. No Pulmonic regurgitation present.
--- NOTE | 2017-03-03 11:39 | Discharge Summary ---
Discharge Summary Hospital Course Date of Admission Feb 20, 2017 at 16:47 Date of Discharge Feb 28, 2017 at 11:45 Admitting Diagnosis Pneumonia/flu HPI Phuc Zabala is a 86 year old male who was admitted on Feb 20, 2017 at 16:47 for Pneumonia, Flu Hospital Course dc summary #[id number] Discharge Condition Upon Discharge: stable Discharge Disposition Patient was discharged to Home with Home Health(06) Discharge Diagnoses: Discharge Instructions Discharge Instructions Special Instructions I have been assigned to complete a D/C Summary on this account. I was not involved in the patient management Nichole Reyes NP ([place]) Mar 03, 2017 11:39
--- NOTE | 2017-03-04 02:00 | Discharge Summary 2 SIG ---
DATE OF ADMISSION: 02/20/2017 DATE OF DISCHARGE: 02/28/2017 REASON FOR ADMISSION: 86-year-old male with history of pacemaker, atrial fibrillation, hypertension, benign prostatic hypertrophy, arteriosclerotic heart disease, and recurrent pneumonia in the past two years, presented with five days of fevers, chills, nonproductive cough, and myalgia. The patient denied chest pain, abdominal pain, nausea, vomiting, and diarrhea. Last hospitalization was several months ago. Upon presentation to the emergency department, the patient was hypotensive, hypoxic, tachypneic, and required placement of 100% nonrebreathing mask. Chest x-ray revealed left-sided pneumonia. EKG revealed right bundle-branch block with T-wave inversion in leads V3. Troponin was negative. Lactic acid - 2.7. Urinalysis negative. BUN -66 and creatinine - 2.5. WBC -11.6. The patient was pancultured and started on empiric antibiotics. Patient required placement of central line and was transferred to ICU for pressors for hemodynamic support. ADMITTING DIAGNOSES: 1. Sepsis with shock. 2. Community-acquired left-sided pneumonia. 3. Hypoxemia. 4. Lactic acidosis. 5. Acute renal failure. HOSPITAL COURSE: The patient was admitted to intensive care unit. Cardiology and ID consults were requested. The patient was started on empiric antibiotics. The patient was on pressor for hemodynamic support and IV fluids. Patient was able to be weaned from pressor fast, and was slowly recovering from shock. Initially, placed on midodrine. IV fluids were tapered down by revit drafter. Echocardiogram revealed preserved ejection fraction of 65% and right ventricular systolic pressure of 37 consistent with mild pulmonary hypertension. The patient was on cautious diuresis. Volumes with cardiorenal parameters were monitored, and cardiovascular regimen was with ongoing titration to optimize blood pressure control. Eventually, midodrine was stopped, and the patient was started on low dose of ARB. Supplemental oxygen provided initially via nonrebreathing mask and then the patient was able to weaned to nasal cannula. Prior to discharge, pulse oximetry was stable on room air. Pulmonary toilet provided with bronchodilators. ID closely followed. Influenza screen test was negative. Blood cultures were negative. Sputum culture was negative. Titers for Mycoplasma pneumoniae and Legionella were all negative. The patient was followed up with chest x-ray, which did not revealed much improvement. Subsequently, CT of the chest was done, which revealed extensive left basilar consolidation likely pneumonia, bilateral pleural effusions, larger on the left, atherosclerotic disease, pacemaker, and metal implants in the area of the left atrial appendage. The patient undergone video swallow study, which was abnormal. Diet was provided as per speech therapy recommendations with strict aspiration /reflux precautions. The patient subsequently undergone on ultrasound-guided thoracentesis of left pleural effusion, which yielded 950 mL of pleural fluid. Chest x-ray the next day revealed no pneumothorax and resolving left pleural effusion. The patient still with mild leukocytosis. Renal parameters, however , improved. Creatinine from initial 2.5 down to 1.6. Pathology of pleural fluid revealed reactive mesothelial cells with degenerative changes in the background of neutrophil-rich infiltrates , but was negative for malignant cells. Cardiology and ID closely followed. Per Infectious Disease doctor, the patient will need upon discharge oral antibiotics. Prescription provided to complete the course. The patient was cleared for discharge home with close outpatient monitoring with home health services. The patient's condition was discussed extensively with the and daughter, who both aware that the patient had a low threshold for readmission . The patient will need further evaluation of an abnormal chest x-ray unless clears. If not improved, the patient will need bronchoscopy. The patient was cleared for discharge home with home health services on oral Levaquin with close follow up with the primary medical doctor and communication instructor. FINAL DIAGNOSES: 1. Sepsis with shock, recovered. 2. Extensive community-acquired pneumonia, left-sided. 3. Left pleural effusion, status post thoracentesis. 4. Lactic acidosis, resolved. 5. Paroxysmal atrial fibrillation with permanent pacemaker. 6. Right bundle-branch block. 7. Acute renal failure, improved. 8. Acute on chronic diastolic congestive heart failure, resolved. 9. Hypoxemia. 10. Hypertensive heart disease. 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 12. History of appendage Watchman device. 13. Severe protein-calorie malnutrition. 14. Chronic obstructive pulmonary disease. DISCHARGE MEDICATIONS: Prescription provided to the patient. List of medication given to the patient. DISCHARGE INSTRUCTIONS: The patient was discharged home with home health services. Follow up with primary medical doctor and communication instructor next week. Madan Hazel M.D. I have been assigned to dictate discharge summary on this account and I was not involved in the patient's management. Nichole CevallosC[facility] Clinic [facility]Houston Houser DR: VICTOR MANUEL JOB#: [id number] CC: ALEIDA
== END 2017-02-28 11:45 | disposition home health service (06) | DRG 871 ==
LOC: EDBD 15:11 → EMR 16:17 → 2W 16:47 → EDBEDREQ 18:03 → EDBEDREQTM 19:24 → EDBEDREQSVC 19:24 → EDBEDREQ 02-21 12:13 → EDBEDREQSVC 02-21 12:13 → 2W 02-21 13:06
PROC: 05HN33Z Insertion of Infusion Device into Left Internal Jugular Vein, Percutaneous Approach (ICD-10-PCS; principal; 2017-02-20)
PROC: 0W9B3ZX Drainage of Left Pleural Cavity, Percutaneous Approach, Diagnostic (ICD-10-PCS; 2017-02-26)
DX: A41.9 Sepsis, unspecified organism (principal); R65.21 Severe sepsis with septic shock; E43 Unspecified severe protein-calorie malnutrition; I50.33 Acute on chronic diastolic (congestive) heart failure; N17.9 Acute kidney failure, unspecified; J90 Pleural effusion, not elsewhere classified; J18.9 Pneumonia, unspecified organism; I13.0 Hypertensive heart and chronic kidney disease with heart failure and stage 1 through stage 4 chronic kidney disease, or unspecified chronic kidney disease; J44.0 Chronic obstructive pulmonary disease with (acute) lower respiratory infection; E87.2 Acidosis; I48.0 Paroxysmal atrial fibrillation; Z95.0 Presence of cardiac pacemaker; I25.10 Atherosclerotic heart disease of native coronary artery without angina pectoris; N18.9 Chronic kidney disease, unspecified; N40.0 Benign prostatic hyperplasia without lower urinary tract symptoms; R09.02 Hypoxemia; I45.10 Unspecified right bundle-branch block; Z68.23 Body mass index [BMI] 23.0-23.9, adult; E87.6 Hypokalemia
CPT/HCPCS: 36415; 71045; 71250; 74230; 76942; 80048; 80053; 80202; 81003; 82164; 82550; 83605; 83735; 83880; 84484; 85007; 85025; 85610; 85730; 86635; 86710; 86713; 86738; 87040; 87070; 87081; 87116; 87205; 88104; 89051; 93005; 93306; 94640; 94664; J7620; J8499

== ENCOUNTER 2017-04-09 09:47 | Outpatient (CLI) | payer MEDICARE, BC ==
[~2017-04-09 09:47] MED LIST: ASPIRIN81 MG ORAL; DEXILANT60 MG ORAL; LOSARTAN POTASS50 MG ORAL; MIDODRINE HCL2.5 MG ORAL; PROSCAR5 MG ORAL
--- NOTE | 2017-04-09 16:47 | Diagnostic Imaging Report ---
Indication: Evaluate pneumonia. History of throat cancer. Technique: Continuous helical transaxial imaging of the chest was obtained from the thoracic inlet to the upper abdomen. No intravenous contrast was administered. Coronal and sagittal reformats. Total Dose length Product (DLP): 618.[address] Dose Index Volume (CTDIvol): 15.98 mGy Comparison: 02/24/2017 Findings: There is significant interval improvement of the previously seen airspace consolidations involving the left lower lobe with small amount of dense consolidation with air bronchograms persisting in the superior segment of the left lower lobe (series 5 image #20). There is complete resolution of the previously seen right-sided pleural effusion. The left-sided pleural effusion is significantly decreased and small on today's exam. There are some new patchy opacities in the superior segment of the right lower lobe (series 5 image #30) which were not definitely present previously. There are innumerable scattered calcified granulomas. There is dependent atelectatic change. There is no pneumothorax. Heart is normal in size. Left-sided pacemaker and implanted device in the area of the left atrial appendage again noted. There are coronary arterial as well as aortic valvular and mitral annular calcifications. No pericardial effusion is seen. The thoracic aorta is normal in caliber but moderately calcified. No pathologically enlarged adenopathy is evident. Thyroid is grossly unremarkable. There is a small hiatal hernia. Low-attenuation lesions within the liver are unchanged. Possible layering high attenuation material in the gallbladder raising question for gallbladder sludge. Remainder of the visualized upper abdomen is unremarkable. There are degenerative changes of the spine. No acute osseous abnormality seen. IMPRESSION: Overall significant improvement of the previously seen dense airspace consolidations with small residual in the superior segment of the left upper lobe. Some new patchy opacities are noted in the superior segment of the right upper lobe which are nonspecific but may be infectious in etiology. Resolution of right-sided pleural effusion. Left pleural effusion is significantly decreased. Additional findings as above without significant interval change from the prior exam. The CT scanner at [facility] is accredited by the [employer] and the scans are performed using dose optimization techniques as appropriate to a performed exam including Automatic Exposure control.
== END 2017-04-09 11:47 | disposition home or self-care (01) ==
LOC: CAT 09:47
DX: J18.9 Pneumonia, unspecified organism (principal); Z85.89 Personal history of malignant neoplasm of other organs and systems
CPT/HCPCS: 71250